=== PATIENT | female | born 1965 | race Caucasian/White ===

== ENCOUNTER → 2017-04-02 | Outpatient (CLI) | payer OTHER ==
--- NOTE | 2017-04-04 10:54 | MM ---
Reason for exam: screening (asymptomatic). Last mammogram was performed 4 years and 6 months ago. History: Patient is postmenopausal. Benign ultrasound-guided core biopsy of the left breast, 2012. Physical Findings: A clinical breast exam by your physician is recommended on an annual basis and results should be correlated with mammographic findings. MG Screening Mammo w CAD Bilateral CC and MLO view(s) were taken. Prior study comparison: September 19, 2012, mammogram. There are scattered fibroglandular densities. Previous mammotome biopsy in the left breast. There is chronic nodularity in the left breast. A nodular asymmetry lateral left breast appear more defined but suspect that it was previously obscured by overlapping tissue as there is no new finding on the MLO view. 6 month follow up recommended. These results were verbally communicated with the patient and result sheet given to the patient on 04/02/17. ASSESSMENT: Probably benign, BI-RAD 3 RECOMMENDATION: Follow-up diagnostic mammogram of the left breast in 6 months.
== END | disposition home or self-care (01) ==
LOC: RADMAMWWP 10:29
PROVIDERS: ATTEND Internal Medicine
DX: Z12.31 Encounter for screening mammogram for malignant neoplasm of breast (principal); E78.5 Hyperlipidemia, unspecified; J45.909 Unspecified asthma, uncomplicated; R56.9 Unspecified convulsions; I10 Essential (primary) hypertension

== ENCOUNTER → 2018-08-09 | Outpatient (CLI) | payer OTHER ==
--- NOTE | 2018-08-09 10:17 | MM ---
Reason for exam: additional evaluation requested from prior study. Last mammogram was performed 1 year and 4 months ago. History: Patient is postmenopausal and history of other cancer. Family history of breast cancer in sister at age 30 and breast cancer in maternal aunt at age 50. Benign ultrasound-guided core biopsy of the left breast, 2012. Physical Findings: Nurse did not find any significant physical abnormalities on exam. MG Diagnostic Mammo w CAD NEIL Bilateral CC and MLO view(s) were taken. Prior study comparison: April 02, 2017, bilateral MG screening mammo w CAD. September 19, 2012, mammogram. There are scattered fibroglandular densities. Stable benign calcifications. Previous mammotome biopsy in the left breast. There is no discrete abnormality. No significant new findings when compared with previous films. These results were verbally communicated with the patient and result sheet given to the patient on 08/09/18. ASSESSMENT: Negative, BI-RAD 1 RECOMMENDATION: Routine screening mammogram of both breasts in 1 year.
== END | disposition home or self-care (01) ==
LOC: RADMAMWWP 09:09
PROVIDERS: ATTEND Internal Medicine
DX: R92.8 Other abnormal and inconclusive findings on diagnostic imaging of breast (principal)
CPT/HCPCS: 77066

== ENCOUNTER 2018-08-17 16:49 | Observation (INO) | payer OTHER ==
[2018-08-17] MEDS ORDERED: IBUPROFEN 800 MG TAB PO PRN (19:06)
[2018-08-17] MEDS ORDERED: ONDANSETRON 4 MG/2 ML VIAL IVP PRN (19:07)
--- NOTE | 2018-08-17 19:25 | XR ---
EXAMINATION TYPE: XR chest 2V DATE OF EXAM: 08/17/2018 COMPARISON: NONE HISTORY: Pneumonia TECHNIQUE: Frontal and lateral views of the chest are obtained. FINDINGS: Heart and mediastinum are normal. Lungs are clear of infiltrate. There are no hilar masses . There is no pleural effusion. Bony thorax is intact. IMPRESSION: No active cardiopulmonary disease. Normal heart.
[2018-08-17] MEDS: ALBUTEROL NEBULIZED 2.5 MG/3 ML INHALATION SCH (19:53)
[2018-08-17] MEDS: ACETAMINOPHEN TAB 325 MG TAB PO PRN (20:20)
[2018-08-17] MEDS: LORazepam 1 MG TAB PO SCH (20:20)
[2018-08-17] MEDS: ATENOLOL 25 MG TAB PO SCH (20:21)
[2018-08-17] MEDS: OSELTAMIVIR 75 MG CAP PO SCH (20:21)
[2018-08-17] MEDS: PHENYTOIN SODIUM EXTENDED 100 MG CAP PO SCH (20:21)
[2018-08-17] MEDS: SODIUM CHLORIDE 0.9% 1,000 ML IV SCH (20:21)
[2018-08-17 20:34] LABS: Basophils # (A) 0.1 k/uL (0-0.2); Basophils % (A) 1 %; Eosinophils # (A) 0.1 k/uL (0-0.7); Eosinophils % (A) 2 %; HCT 39.9 % (34.0-46.0); HGB 13.3 gm/dL (11.4-16.0); Lymphocytes # (A) 0.6 k/uL (1.0-4.8); Lymphocytes % (A) 10 %; MCH 30.7 pg (25.0-35.0); MCHC 33.2 g/dL (31.0-37.0); MCV 92.5 fL (80.0-100.0); Mean Platelet Volume 8.1; Monocytes # (A) 0.5 k/uL (0-1.0); Monocytes % (A) 8 %; Neutrophils # (A) 4.8 k/uL (1.3-7.7); Neutrophils % (A) 77 %; Platelet Count 142 k/uL (150-450); RBC 4.32 m/uL (3.80-5.40); RDW 13.8 % (11.5-15.5); WBC 6.2 k/uL (3.8-10.6)
[2018-08-17 20:47] LABS: ALT 34 U/L (9-52); AST 26 U/L (14-36); Albumin 3.8 g/dL (3.5-5.0); Alkaline Phosphatase 95 U/L (38-126); Anion Gap 3 mmol/L; Blood Urea Nitrogen 11 mg/dL (7-17); Calcium 8.7 mg/dL (8.4-10.2); Carbon Dioxide 25 mmol/L (22-30); Chloride 104 mmol/L (98-107); Glucose 110 mg/dL (74-99); Potassium 4.4 mmol/L (3.5-5.1); Sodium 132 mmol/L (137-145); Total Bilirubin 0.6 mg/dL (0.2-1.3); Total Protein 6.4 g/dL (6.3-8.2)
[2018-08-17] MEDS: MECLIZINE 25 MG TAB PO SCH (22:30)
[2018-08-17] MEDS: AZITHROMYCIN 500 MG in SODIUM CHLORIDE 0.9% 250 ML IVPB SCH (23:55)
[2018-08-18] MEDS ORDERED: BENZOCAINE/MENTHOL LOZENG 1 EACH LOZENGE MUCOUS MEM PRN (01:03)
[2018-08-18] MEDS: ALBUTEROL NEBULIZED 2.5 MG/3 ML INHALATION PRN ×4 (07:37→19:03)
[2018-08-18] MEDS: ALBUTEROL NEBULIZED 2.5 MG/3 ML INHALATION SCH ×4 (07:38→19:04)
[2018-08-18] MEDS: OSELTAMIVIR 75 MG CAP PO SCH ×2 (08:10→21:03)
[2018-08-18] MEDS: PHENYTOIN SODIUM EXTENDED 100 MG CAP PO SCH ×3 (08:10→21:03)
[2018-08-18] MEDS: PANTOPRAZOLE 40 MG TABLET PO SCH (08:10)
[2018-08-18] MEDS: LORazepam 1 MG TAB PO SCH ×3 (08:10→21:02)
[2018-08-18] MEDS: SODIUM CHLORIDE 0.9% 1,000 ML IV SCH ×2 (08:11→21:03)
[2018-08-18] MEDS: MECLIZINE 25 MG TAB PO SCH ×3 (08:11→21:03)
--- NOTE | 2018-08-18 10:16 | P.HPIM ---
History of Present Illness H&P Date: 08/18/18 This is a 53-year-old female patient who was a direct admit from her PCP with positive influenza A. Patient reports that on Tuesday afternoon she started to experiencing headache with fevers. Symptoms became progressively worse and patient presented to her PCP. Patient also complaining of productive cough. Patient was positive for influenza A and was admitted to observation. Patient does have a past medical history of asthma, hypertension, seizure disorder anxiety depression and current every day smoker. Patient declined nicotine patch at this time. Chest x-ray completed showing no acute cardiopulmonary disease. Normal heart. Patient has been started on Tamiflu and azithromycin. Patient did have fever 102.9. Dr. Dean has been consulted for pulmonary services. At this time patient denies chest pain or shortness breath. Patient is complaining of productive cough. Patient denies any urinary burning or frequency. Patient denies nausea vomiting or diarrhea. Review of Systems Please refer to HPI otherwise unremarkable Past Medical History Past Medical History: Asthma, Hypertension, Seizure Disorder Additional Past Medical History / Comment(s): vertigo. LAST SEIZURE "SEVERAL YEARS AGO"; tendonitis in left elbow History of Any Multi-Drug Resistant Organisms: None Reported Past Surgical History: Breast Surgery, Section, Tubal Ligation Additional Past Surgical History / Comment(s): LEFT BREAST BX /NEG. CYST REMOVED RIGHT BUTTOCKS. D & C Past Anesthesia/Blood Transfusion Reactions: Motion Sickness Past Psychological History: Anxiety, Depression Smoking Status: Current every day smoker Past Alcohol Use History: None Reported Additional Past Alcohol Use History / Comment(s): started 1977 1PPD Past Drug Use History: None Reported - Past Family History Mother Family Medical History: Hypertension Father History Unknown: Yes Medications and Allergies Home Medications Medication Instructions Recorded Confirmed Type Atenolol [Tenormin] 25 mg PO HS 04/12/14 08/17/18 History Phenytoin Sodium Extended 100 mg PO TID 04/12/14 08/17/18 History [Dilantin] Albuterol Sulfate [Proair Hfa] 2 puff INHALATION RT-QID 07/29/15 08/17/18 History Ergocalciferol [Vitamin D2 50,000 unit PO MO 08/17/18 08/17/18 History (DRISDOL)] Ibuprofen [Motrin Ib] 800 mg PO Q6H PRN 08/17/18 08/17/18 History LORazepam [Ativan] 1 mg PO TID 08/17/18 08/17/18 History Meclizine [Antivert] 25 mg PO TID 08/17/18 08/17/18 History Omeprazole 40 mg PO DAILY 08/17/18 08/17/18 History Allergies Allergy/AdvReac Type Severity Reaction Status Date / Time ciprofloxacin [From Cipro] Allergy Rash/Hives Verified 08/17/18 18:50 ciprofloxacin HCl Allergy Rash/Hives Verified 08/17/18 18:50 [From Cipro] Penicillins Allergy Rash/Hives Verified 08/17/18 18:50 Sulfa (Sulfonamide Allergy Rash/Hives Verified 08/17/18 18:50 Antibiotics) hydromorphone HCl AdvReac Confusion Verified 08/17/18 18:50 [From Dilaudid] Physical Exam Vitals: Vital Signs Temp Pulse Pulse Resp BP BP Pulse Ox 08/18/18 07:54 98.9 F 75 18 125/75 95 08/18/18 07:45 96 08/18/18 07:37 92 08/18/18 04:00 18 08/18/18 03:52 98.4 F 76 18 101/59 93 L 08/18/18 00:00 18 08/17/18 23:10 102.9 F H 91 18 119/63 92 L 08/17/18 20:05 95 08/17/18 20:00 18 08/17/18 19:56 97 08/17/18 17:46 101.1 F H 95 18 144/72 91 L Intake and Output 08/17/18 08/18/18 08/18/18 22:59 06:59 14:59 Other: Voiding Method Toilet Toilet # Voids 2 Weight 71 kg Head normocephalic Neck supple Lungs diminished bilaterally Heart regular rate and rhythm S1-S2, no rub or gallop Abdomen is soft nontender nondistended positive bowel sounds no hepatosplenomegaly Extremities no edema Neuro alert and orientated to 3 Results CBC & Chem 7: 08/17/18 20:06 08/17/18 20:06 Labs: Abnormal Lab Results - Last 24 Hours (Table) 08/17/18 08/17/18 08/17/18 Range/Units 20:06 20:06 22:18 Plt Count 142 L (150-450) k/uL Lymphocytes # 0.6 L (1.0-4.8) k/uL Sodium 132 L (137-145) mmol/L Glucose 110 H (74-99) mg/dL Influenza Type A RNA Detected H (Not Detectd) Thrombosis Risk Factor Assmnt - Choose All That Apply Any of the Below Risk Factors Present?: Yes Each Factor Represents 1 point: Age 41-60 years Thrombosis Risk Factor Assessment Total Risk Factor Score: 1 Thrombosis Risk Factor Assessment Level: Low Risk Assessment and Plan Assessment: 1. Influenza A. Patient febrile with temp 102.9. Patient started on Tamiflu 2. Acute bronchitis with possible pneumonia. Patient started on azithromycin pulmonary services have been consulted 3. History of asthma 4. History of essential hypertension 5. History of seizure 6. History of anxiety and depression 7. Nicotine dependence. Patient has been educated greater then 3 minutes on smoking cessation. Patient declined nicotine patch at this time DVT prophylaxis Lovenox. GI prophylaxis Protonix Time with Patient: Greater than 30 (Greater than 60% of the total time spent in counseling and coordination of care. [employer] statement)
[2018-08-18 11:25] LABS: Basophils # (A) 0.1 k/uL (0-0.2); Basophils % (A) 1 %; Eosinophils # (A) 0.1 k/uL (0-0.7); Eosinophils % (A) 2 %; HCT 40.2 % (34.0-46.0); Lymphocytes # (A) 0.8 k/uL (1.0-4.8); Lymphocytes % (A) 15 %; MCH 30.5 pg (25.0-35.0); MCHC 32.4 g/dL (31.0-37.0); MCV 94.2 fL (80.0-100.0); Monocytes # (A) 0.3 k/uL (0-1.0); Monocytes % (A) 7 %; Neutrophils # (A) 3.8 k/uL (1.3-7.7); Neutrophils % (A) 74 %; Platelet Count 121 k/uL (150-450); RBC 4.26 m/uL (3.80-5.40); RDW 14.1 % (11.5-15.5); WBC 5.1 k/uL (3.8-10.6)
[2018-08-18 11:41] LABS: ALT 24 U/L (9-52); AST 24 U/L (14-36); Albumin 3.2 g/dL (3.5-5.0); Alkaline Phosphatase 78 U/L (38-126); Anion Gap 6 mmol/L; Blood Urea Nitrogen 9 mg/dL (7-17); Calcium 8.1 mg/dL (8.4-10.2); Carbon Dioxide 25 mmol/L (22-30); Chloride 109 mmol/L (98-107); Glucose 106 mg/dL (74-99); Potassium 4.6 mmol/L (3.5-5.1); Sodium 140 mmol/L (137-145); Total Bilirubin 0.4 mg/dL (0.2-1.3); Total Protein 5.7 g/dL (6.3-8.2)
--- NOTE | 2018-08-18 14:11 | P.CNPUL ---
History of Present Illness Consult date: 08/18/18 Reason for consult: cough History of present illness: 53-year-old female patient, chronic smoker, was then taken ventilator mask and him outpatient basis, comes in with cough and congestion in addition to headache and fever and chills on one bout of emesis. No abdominal pain. Altered mentation. Limited cough without any significant sputum production. No hemoptysis . No pleurisy. The patient was positive for influenza A. She was admitted for observation. She is currently on Tamiflu. Last temperature was 102.9 and currently she is afebrile. She is tolerating Diet. She is calm and comfortable. No hemodynamic instability. No hypotension. No signs of any dehydration. She has not taken her flu shot for this current year. No sick contacts. No travel history. No other complaints otherwise for now. Review of Systems Constitutional: Reports chills, Reports fatigue, Reports fever, Reports sweats, Reports weakness Eyes: denies as per HPI, denies blurred vision, denies bulging eye, denies decreased vision, denies diplopia, denies discharge, denies dry eye, denies irritation, denies itching, denies pain, denies photophobia, denies loss of peripheral vision, denies loss of vision, denies tunnel vision/blind spots Ears: deny: decreased hearing, ear discharge, earache, tinnitus Ears, nose, mouth and throat: Denies headache, Denies sore throat Breasts: absent: as per HPI, change in shape, gynecomastia, masses, nipple discharge, pain, skin changes, swelling Cardiovascular: Reports as per HPI Respiratory: Reports cough Gastrointestinal: Reports as per HPI Menstruation: Reports as per HPI Musculoskeletal: Reports as per HPI Musculoskeletal: absent: ankle pain, ankle stiffness, ankle swelling, as per HPI , elbow pain, elbow stiffness, elbow swelling, foot pain, foot stiffness, foot swelling, hand pain, hand stiffness, hand swelling, hip pain, hip stiffness, hip swelling, knee pain, knee stiffness, knee swelling, shoulder pain, shoulder stiffness, shoulder swelling, wrist pain, wrist stiffness, wrist swelling Integumentary: Reports as per HPI Neurological: Reports as per HPI Psychiatric: Reports as per HPI Hematologic/Lymphatic: Reports as per HPI Allergic/Immunologic: Reports as per HPI Past Medical History Past Medical History: Asthma, Hypertension, Seizure Disorder Additional Past Medical History / Comment(s): vertigo. LAST SEIZURE "SEVERAL YEARS AGO"; tendonitis in left elbow History of Any Multi-Drug Resistant Organisms: None Reported Past Surgical History: Breast Surgery, Section, Tubal Ligation Additional Past Surgical History / Comment(s): LEFT BREAST BX /NEG. CYST REMOVED RIGHT BUTTOCKS. D & C Past Anesthesia/Blood Transfusion Reactions: Motion Sickness Past Psychological History: Anxiety, Depression Smoking Status: Current every day smoker Past Alcohol Use History: None Reported Additional Past Alcohol Use History / Comment(s): started 1977 1PPD Past Drug Use History: None Reported - Past Family History Mother Family Medical History: Hypertension Father History Unknown: Yes Medications and Allergies Home Medications Medication Instructions Recorded Confirmed Type Atenolol [Tenormin] 25 mg PO HS 04/12/14 08/17/18 History Phenytoin Sodium Extended 100 mg PO TID 04/12/14 08/17/18 History [Dilantin] Albuterol Sulfate [Proair Hfa] 2 puff INHALATION RT-QID 07/29/15 08/17/18 History Ergocalciferol [Vitamin D2 50,000 unit PO MO 08/17/18 08/17/18 History (DRISDOL)] Ibuprofen [Motrin Ib] 800 mg PO Q6H PRN 08/17/18 08/17/18 History LORazepam [Ativan] 1 mg PO TID 08/17/18 08/17/18 History Meclizine [Antivert] 25 mg PO TID 08/17/18 08/17/18 History Omeprazole 40 mg PO DAILY 08/17/18 08/17/18 History Allergies Allergy/AdvReac Type Severity Reaction Status Date / Time ciprofloxacin [From Cipro] Allergy Rash/Hives Verified 08/17/18 18:50 ciprofloxacin HCl Allergy Rash/Hives Verified 08/17/18 18:50 [From Cipro] Penicillins Allergy Rash/Hives Verified 08/17/18 18:50 Sulfa (Sulfonamide Allergy Rash/Hives Verified 08/17/18 18:50 Antibiotics) hydromorphone HCl AdvReac Confusion Verified 08/17/18 18:50 [From Dilaudid] Physical Exam Vitals: Vital Signs Temp Pulse Pulse Resp BP BP Pulse Ox 08/18/18 12:00 100 F H 91 18 116/65 94 L 08/18/18 11:21 96 08/18/18 11:12 92 08/18/18 07:54 98.9 F 75 18 125/75 95 08/18/18 07:45 96 08/18/18 07:37 92 08/18/18 04:00 18 08/18/18 03:52 98.4 F 76 18 101/59 93 L 08/18/18 00:00 18 08/17/18 23:10 102.9 F H 91 18 119/63 92 L 08/17/18 20:05 95 08/17/18 20:00 18 08/17/18 19:56 97 08/17/18 17:46 101.1 F H 95 18 144/72 91 L Intake and Output 08/17/18 08/18/18 08/18/18 22:59 06:59 14:59 Other: Voiding Method Toilet Toilet Toilet # Voids 2 Weight 71 kg The patient appeared well nourished and normally developed. Vital signs as documented. Head exam is unremarkable. No scleral icterus or corneal arcus noted. Neck is without jugular venous distension, thyromegaly, or carotid bruits. Carotid upstrokes are brisk bilaterally. Lungs are clear to auscultation and percussion. Cardiac exam reveals the PMI to be normally sized and situated. Rhythm is regular. First and second heart sounds normal. No murmurs, rubs or gallops. Abdominal exam reveals normal bowel sounds, no masses , no organomegaly and no aortic enlargement. Extremities are nonedematous and both femoral and pedal pulses are normal.Examination of the skin revealed no evidence of significant rashes, suspicious appearing nevi or other concerning lesions. Neurologically awake and intact and alert. Examination of the skin revealed no evidence of significant rashes, suspicious appearing nevi or other concerning lesions. Results - Laboratory Findings CBC and BMP: 08/18/18 11:05 08/18/18 11:05 Abnormal lab findings: Abnormal Labs 08/17/18 08/17/18 08/17/18 20:06 20:06 22:18 Plt Count 142 L Lymphocytes # 0.6 L Sodium 132 L Chloride Glucose 110 H Calcium Total Protein Albumin Influenza Type A RNA Detected H 08/18/18 08/18/18 11:05 11:05 Plt Count 121 L Lymphocytes # 0.8 L Sodium Chloride 109 H Glucose 106 H Calcium 8.1 L Total Protein 5.7 L Albumin 3.2 L Influenza Type A RNA - Diagnostic Findings Chest x-ray: image reviewed Assessment and Plan Plan: Assessment 1 acute influenza syndrome, respiratory tract infection with secondary systemic symptoms including some headache nausea and emesis. No signs of dehydration. The patient has no major respiratory distress or hypoxemia at this point pulse ox 94% on room air 2 acute fever secondary to above 3 chronic smoker 4 history of chronic bronchial asthma 5 hypertension 6 seizure disorder 7 chronic anxiety/depression Plan Complete a course of Tamiflu for the next 5 days. Symptomatic treatment. IV fluids. Monitor fever pattern. Headache has subsided. No significant nausea. No signs of any respiratory distress. 23 hour observation. Possible discharge in a.m.
[2018-08-18] MEDS: ACETAMINOPHEN TAB 325 MG TAB PO PRN (15:03)
[2018-08-18] MEDS: AZITHROMYCIN 500 MG in SODIUM CHLORIDE 0.9% 250 ML IVPB SCH (21:03)
[2018-08-18] MEDS: ATENOLOL 25 MG TAB PO SCH (21:03)
[2018-08-19 05:59] LABS: Basophils # (A) 0.1 k/uL (0-0.2); Basophils % (A) 1 %; Eosinophils # (A) 0.3 k/uL (0-0.7); Eosinophils % (A) 8 %; HCT 38.3 % (34.0-46.0); Lymphocytes # (A) 0.8 k/uL (1.0-4.8); Lymphocytes % (A) 20 %; MCH 29.9 pg (25.0-35.0); MCHC 31.4 g/dL (31.0-37.0); MCV 95.1 fL (80.0-100.0); Mean Platelet Volume 9.4; Monocytes # (A) 0.2 k/uL (0-1.0); Monocytes % (A) 5 %; Neutrophils # (A) 2.6 k/uL (1.3-7.7); Neutrophils % (A) 63 %; Platelet Count 118 k/uL (150-450); RBC 4.03 m/uL (3.80-5.40); RDW 14.3 % (11.5-15.5); WBC 4.2 k/uL (3.8-10.6)
[2018-08-19 06:12] LABS: ALT 31 U/L (9-52); AST 25 U/L (14-36); Albumin 3.1 g/dL (3.5-5.0); Alkaline Phosphatase 74 U/L (38-126); Anion Gap 3 mmol/L; Blood Urea Nitrogen 8 mg/dL (7-17); Calcium 8.1 mg/dL (8.4-10.2); Carbon Dioxide 27 mmol/L (22-30); Chloride 110 mmol/L (98-107); Glucose 110 mg/dL (74-99); Potassium 4.2 mmol/L (3.5-5.1); Sodium 140 mmol/L (137-145); Total Bilirubin 0.3 mg/dL (0.2-1.3); Total Protein 5.5 g/dL (6.3-8.2)
[2018-08-19 07:30] VITALS: BP 121/70; RESP 18; TEMP 98.4
[2018-08-19] MEDS: ALBUTEROL NEBULIZED 2.5 MG/3 ML INHALATION PRN (08:02)
[2018-08-19] MEDS: ALBUTEROL NEBULIZED 2.5 MG/3 ML INHALATION SCH ×2 (08:02→12:10)
[2018-08-19 08:13] VITALS: PULSE 78
[2018-08-19] MEDS ORDERED: ENOXAPARIN 40 MG/0.4 ML SYRINGE SQ SCH (09:00)
[2018-08-19] MEDS: MECLIZINE 25 MG TAB PO SCH (09:16)
[2018-08-19] MEDS: LORazepam 1 MG TAB PO SCH (09:16)
[2018-08-19] MEDS: PANTOPRAZOLE 40 MG TABLET PO SCH (09:16)
[2018-08-19] MEDS: PHENYTOIN SODIUM EXTENDED 100 MG CAP PO SCH (09:16)
[2018-08-19] MEDS: OSELTAMIVIR 75 MG CAP PO SCH (09:17)
[2018-08-19] MEDS: ACETAMINOPHEN TAB 325 MG TAB PO PRN (09:21)
--- NOTE | 2018-08-19 12:06 | P.DS ---
Providers Date of admission: 08/17/18 17:40 Expected date of discharge: 08/19/18 Attending physician: Paresh Li Consults: 08/18/18 10:08 Consult Physician Routine Consulting Provider: Kenisha Escalante Consult Reason/Comments: flu a, pneumonia` Do you want consulting provider notified?: Yes Primary care physician: Paresh Guillermo [facility] Course: Diagnosis on discharge: 1. Influenza A. Patient febrile with temp 102.9. Patient started on Tamiflu 2. Acute bronchitis without pneumonia chest x-ray clear. Patient started on azithromycin pulmonary services have been consulted 3. History of asthma 4. History of essential hypertension 5. History of seizure 6. History of anxiety and depression 7. Nicotine dependence. Patient has been educated greater then 3 minutes on smoking cessation. Patient declined nicotine patch at this time Hospital course: This is a 53-year-old female patient who was a direct admit from her PCP with positive influenza A. Patient reports that on Tuesday afternoon she started to experiencing headache with fevers. Symptoms became progressively worse and patient presented to her PCP. Patient also complaining of productive cough. Patient was positive for influenza A and was admitted to observation. Patient does have a past medical history of asthma, hypertension, seizure disorder anxiety depression and current every day smoker. Patient declined nicotine patch at this time. Chest x-ray completed showing no acute cardiopulmonary disease. Normal heart. Patient has been started on Tamiflu and azithromycin. Patient did have fever 102.9. Dr. Dean has been consulted for pulmonary services. At this time patient denies chest pain or shortness breath. Patient is complaining of productive cough. Patient denies any urinary burning or frequency. Patient denies nausea vomiting or diarrhea. Patient admitted to observation unit she was diagnosed with influenza A and with acute purulent bronchitis she received oral Tamiflu she also received IV Zithromax, home medication resumed, patient improved gradually fever and headache subsided she was evaluated by primary health organisation manager during this admission. Patient improved significantly and was discharged home on 08/19/2018 she will be followed in our office within 1 week. Plan - Discharge Summary Discharge Rx Participant: No New Discharge Prescriptions: New Acetaminophen Tab [Tylenol] 650 mg PO Q6HR PRN tab PRN Reason: Fever And/ Or Pain Oseltamivir [Tamiflu] 75 mg PO Q12HR cap Continue Atenolol [Tenormin] 25 mg PO HS Phenytoin Sodium Extended [Dilantin] 100 mg PO TID Albuterol Sulfate [Proair Hfa] 2 puff INHALATION RT-QID Omeprazole 40 mg PO DAILY LORazepam [Ativan] 1 mg PO TID Meclizine [Antivert] 25 mg PO TID Ibuprofen [Motrin Ib] 800 mg PO Q6H PRN PRN Reason: PAIN/FEVER Ergocalciferol [Vitamin D2 (DRISDOL)] 50,000 unit PO MO Discharge Medication List Atenolol [Tenormin] 25 mg PO HS 04/12/14 [History] Phenytoin Sodium Extended [Dilantin] 100 mg PO TID 04/12/14 [History] Albuterol Sulfate [Proair Hfa] 2 puff INHALATION RT-QID 07/29/15 [History] Ergocalciferol [Vitamin D2 (DRISDOL)] 50,000 unit PO MO 08/17/18 [History] Ibuprofen [Motrin Ib] 800 mg PO Q6H PRN 08/17/18 [History] LORazepam [Ativan] 1 mg PO TID 08/17/18 [History] Meclizine [Antivert] 25 mg PO TID 08/17/18 [History] Omeprazole 40 mg PO DAILY 08/17/18 [History] Acetaminophen Tab [Tylenol] 650 mg PO Q6HR PRN tab 08/19/18 [Rx] Oseltamivir [Tamiflu] 75 mg PO Q12HR cap 08/19/18 [Rx]
[2018-08-21] MEDS ORDERED: ERGOCALCIFEROL 50,000 UNIT CAP PO SCH (12:00)
== END 2018-08-19 12:41 | disposition home or self-care (01) ==
LOC: 1SOBS 17:40
PROVIDERS: ADMIT Internal Medicine; ATTEND Internal Medicine
DX: J10.1 Influenza due to other identified influenza virus with other respiratory manifestations (principal); J20.9 Acute bronchitis, unspecified; J45.909 Unspecified asthma, uncomplicated; F32.9 Major depressive disorder, single episode, unspecified; G40.909 Epilepsy, unspecified, not intractable, without status epilepticus; F41.9 Anxiety disorder, unspecified; F17.210 Nicotine dependence, cigarettes, uncomplicated; I10 Essential (primary) hypertension; Z71.6 Tobacco abuse counseling; Z88.1 Allergy status to other antibiotic agents; Z88.5 Allergy status to narcotic agent; Z88.0 Allergy status to penicillin; Z88.2 Allergy status to sulfonamides; Z98.51 Tubal ligation status; Z79.899 Other long term (current) drug therapy; Z82.49 Family history of ischemic heart disease and other diseases of the circulatory system
CPT/HCPCS: 96361; 96365; 96366; 96372; 94640 ×3; 80053 ×3; 85025 ×3; 87502; 71046; G0378 ×3; G0379; J0456 ×2; J1650

== ENCOUNTER 2021-04-04 15:34 | Emergency (ER) | payer OTHER ==
[2021-04-04] MEDS ORDERED: guaiFENesin-DM 600/30MG 1 EACH TAB.ER.12H PO STA (17:21)
--- NOTE | 2021-04-04 17:27 | ED ---
General Adult HPI - General Source: patient Mode of arrival: ambulatory Limitations: no limitations <Silvia Gates - Last Filed: 04/04/21 22:26> <Emily Guzman - Last Filed: 04/06/21 00:59> - General Chief complaint: Upper Respiratory Infection Stated complaint: Upper Resp Time Seen by Provider: 04/04/21 16:57 - History of Present Illness Initial comments: 55 year-old female patient presents to the emergency department for evaluation of cough. States it woke her from sleep last night. States she has had episodes of coughing throughout the day and now she has a sore throat. She is concerned she has strep. She denies any shortness of breath or chest pain. States her cough is productive. Denies hemoptysis. Denies any fever or chills. Denies nausea or vomiting. States she is vaccinated for COVID and does not need to be tested. She denies taking any medication for her symptoms. She is a smoker. (Silvia Gates) - Related Data Home Medications Medication Instructions Recorded Confirmed Phenytoin Sodium Extended 100 mg PO TID 04/12/14 08/17/18 [Dilantin] atenoloL [Tenormin] 25 mg PO HS 04/12/14 08/17/18 Albuterol Sulfate [Proair Hfa] 2 puff INHALATION RT-QID 07/29/15 08/17/18 Ergocalciferol [Vitamin D2 50,000 unit PO MO 08/17/18 08/17/18 (DRISDOL)] Ibuprofen [Motrin Ib] 800 mg PO Q6H PRN 08/17/18 08/17/18 LORazepam [Ativan] 1 mg PO TID 08/17/18 08/17/18 Meclizine [Antivert] 25 mg PO TID 08/17/18 08/17/18 Omeprazole 40 mg PO DAILY 08/17/18 08/17/18 Previous Rx's Medication Instructions Recorded Acetaminophen Tab [Tylenol] 650 mg PO Q6HR PRN tab 08/19/18 Oseltamivir [Tamiflu] 75 mg PO Q12HR cap 08/19/18 guaiFENesin-DM 600/30MG [Mucinex 2 each PO Q12HR PRN #20 tab 04/04/21 Dm] guaiFENesin-DM 600/30MG [Mucinex 2 each PO Q12HR PRN #20 tab 04/04/21 Dm] Allergies Allergy/AdvReac Type Severity Reaction Status Date / Time ciprofloxacin [From Cipro] Allergy Rash/Hives Verified 04/04/21 16:54 ciprofloxacin HCl Allergy Rash/Hives Verified 04/04/21 16:54 [From Cipro] Penicillins Allergy Rash/Hives Verified 04/04/21 16:54 Sulfa (Sulfonamide Allergy Rash/Hives Verified 04/04/21 16:54 Antibiotics) hydromorphone HCl AdvReac Confusion Verified 04/04/21 16:54 [From Dilaudid] Review of Systems ROS Other: All systems not noted in ROS Statement are negative. <Silvia Gates - Last Filed: 04/04/21 22:26> ROS Other: All systems not noted in ROS Statement are negative. <Emily Guzman - Last Filed: 04/06/21 00:59> ROS Statement: Those systems with pertinent positive or pertinent negative responses have been documented in the HPI. Past Medical History Past Medical History: Asthma, Hypertension, Seizure Disorder Additional Past Medical History / Comment(s): vertigo. LAST SEIZURE "SEVERAL YEARS AGO"; tendonitis in left elbow History of Any Multi-Drug Resistant Organisms: None Reported Past Surgical History: Breast Surgery, Section, Tubal Ligation Additional Past Surgical History / Comment(s): LEFT BREAST BX /NEG. CYST REMOVED RIGHT BUTTOCKS. D & C Past Anesthesia/Blood Transfusion Reactions: Motion Sickness Past Psychological History: Anxiety, Depression Smoking Status: Current every day smoker Past Alcohol Use History: None Reported Past Drug Use History: None Reported - Past Family History Mother Family Medical History: Hypertension Father History Unknown: Yes <Silvia Gates - Last Filed: 04/04/21 22:26> General Exam Limitations: no limitations General appearance: alert, in no apparent distress, other (This is a well- developed, well-nourished adult female patient in no acute distress. Vital signs upon presentation are temperature 98.4F, pulse 77, respirations 18, blood pressure 180/98, pulse ox 96% on room air.) ENT exam: Present: mucous membranes moist. Absent: normal oropharynx (pharyngeal erythema, tonsillar hypertropy. No exudate. Tonsils are symmetric. Uvula is midline.) Respiratory exam: Present: normal lung sounds bilaterally. Absent: respiratory distress, wheezes, rales, rhonchi, stridor Cardiovascular Exam: Present: regular rate, normal rhythm, normal heart sounds. Absent: systolic murmur, diastolic murmur, rubs, gallop, clicks Neurological exam: Present: alert, oriented X3, CN II-XII intact Psychiatric exam: Present: normal affect, normal mood Skin exam: Present: warm, dry, intact, normal color. Absent: rash <Silvia Gates - Last Filed: 04/04/21 22:26> Course Vital Signs 04/04/21 04/04/21 16:55 18:40 Temperature 98.4 F 98.2 F Pulse Rate 77 76 Respiratory 18 20 Rate Blood Pressure 180/98 178/84 O2 Sat by Pulse 96 97 Oximetry Medical Decision Making - Radiology Data Radiology results: report reviewed, image reviewed <Silvia Gates - Last Filed: 04/04/21 22:26> <Emily Guzman - Last Filed: 04/06/21 00:59> - Medical Decision Making 55-year-old female patient with long history of smoking cigarettes presents the emergency department today for evaluation of persistent cough and sore throat. Physical examination did feel clear equal lung sounds. Strep screen was negat brianna. Chest x-ray was negative. She'll be given a prescription for Mucinex DM. She is instructed to follow-up with her primary care physician for recheck in 1- 2 days. Return parameters were discussed in detail. She verbalizes understanding and agrees with this plan. My attending is Dr. Guzman. (Silvia Gates) I was available for consultation in the emergency department. The history and physical exam were done by the midlevel provider. I was consulted for this patients care. I reviewed the case with the midlevel provider and based on their presentation of the patient, I agree with the assessment, medical decision making and plan of care as documented. Chart was dictated using [employer] dictation software. Attempts were made to correct any dictation errors however some typographical errors may persist. (Emily Guzman) - Lab Data Lab Results 04/04/21 Range/Units 17:28 Group A Strep Rapid Negative (Negative) - Radiology Data 2 views of the chest are obtained. Report was reviewed in its entirety. Impression by Dr. Liu shows unremarkable chest. No change. (Silvia Gates) Disposition Is patient prescribed a controlled substance at d/c from ED?: No Time of Disposition: 18:21 <Silvia Gates - Last Filed: 04/04/21 22:26> <ThomasEmily Kartik - Last Filed: 04/06/21 00:59> Clinical Impression: Viral upper respiratory infection Disposition: HOME SELF-CARE Condition: Good Instructions (If sedation given, give patient instructions): Upper Respiratory Infection (ED) Additional Instructions: Take Tylenol and Motrin for pain control. Continue Mucinex for cough. Follow- up with her primary care physician for recheck in 1-2 days. Return for any new, worsening, or concerning symptoms. Prescriptions: guaiFENesin-DM 600/30MG [Mucinex Dm] 2 each PO Q12HR PRN #20 tab PRN Reason: Cough guaiFENesin-DM 600/30MG [Mucinex Dm] 2 each PO Q12HR PRN #20 tab PRN Reason: Cough Referrals: Paresh Li MD [Primary Care Provider] - 1-2 days
--- NOTE | 2021-04-04 18:09 | XR ---
EXAMINATION TYPE: XR chest 2V DATE OF EXAM: 04/04/2021 COMPARISON: 08/17/2018 HISTORY: Possible pneumonia. Chest pain TECHNIQUE: 2 views FINDINGS: Heart and mediastinum are normal. Lungs are clear. Diaphragm is normal. Bony thorax appears normal. IMPRESSION: Multiple chest. No change.
[2021-04-04 18:41] VITALS: BP 178/84; PULSE 76; RESP 20; TEMP 98.2
== END 2021-04-04 18:41 | disposition home or self-care (01) ==
LOC: EC 15:34
DX: J06.9 Acute upper respiratory infection, unspecified (principal); F17.200 Nicotine dependence, unspecified, uncomplicated; J45.909 Unspecified asthma, uncomplicated; I10 Essential (primary) hypertension; G40.909 Epilepsy, unspecified, not intractable, without status epilepticus; Z79.899 Other long term (current) drug therapy; Z88.0 Allergy status to penicillin; Z88.1 Allergy status to other antibiotic agents; Z88.2 Allergy status to sulfonamides; Z88.5 Allergy status to narcotic agent
CPT/HCPCS: 71046; 87081; 87430; 99283

== ENCOUNTER 2022-03-06 12:13 | Emergency (ER) | payer OTHER ==
[2022-03-06 12:17] VITALS: RESP 16
--- NOTE | 2022-03-06 14:16 | XR ---
EXAMINATION TYPE: XR foot complete RT DATE OF EXAM: 03/06/2022 COMPARISON: NONE HISTORY: Foot pain TECHNIQUE: 3 views FINDINGS: Metatarsals are intact. The toes appear intact. No evidence of fracture nor dislocation. Jael int spaces are normal. IMPRESSION: Negative right foot exam. No fracture
[2022-03-06] MEDS ORDERED: ACET/COD 300 MG/30 MG STARTER PACK 6 TAB BTL PO STA (14:44)
--- NOTE | 2022-03-06 14:44 | ED ---
General Adult HPI - General Chief complaint: Extremity Problem,Nontraumatic Stated complaint: right foot pain Time Seen by Provider: 03/06/22 13:34 Source: patient, RN notes reviewed Mode of arrival: ambulatory Limitations: no limitations - History of Present Illness Initial comments: 56-year-old female presents emergency Department chief complaint right foot pain. Patient states his been increasing over the last week or 2. Patient states that she has pain worsening when she in place from. Time states it feels very tight and radiating pain. She feels it more dorsal lateral portion of her foot no paresthesias no trauma no prior surgeries. - Related Data Home Medications Medication Instructions Recorded Confirmed Phenytoin Sodium Extended 100 mg PO TID 04/12/14 08/17/18 [Dilantin] atenoloL [Tenormin] 25 mg PO HS 04/12/14 08/17/18 Albuterol Sulfate [Proair Hfa] 2 puff INHALATION RT-QID 07/29/15 08/17/18 Ergocalciferol [Vitamin D2 50,000 unit PO MO 08/17/18 08/17/18 (DRISDOL)] Ibuprofen [Motrin Ib] 800 mg PO Q6H PRN 08/17/18 08/17/18 LORazepam [Ativan] 1 mg PO TID 08/17/18 08/17/18 Meclizine [Antivert] 25 mg PO TID 08/17/18 08/17/18 Omeprazole 40 mg PO DAILY 08/17/18 08/17/18 Previous Rx's Medication Instructions Recorded Acetaminophen Tab [Tylenol] 650 mg PO Q6HR PRN tab 08/19/18 Oseltamivir [Tamiflu] 75 mg PO Q12HR cap 08/19/18 guaiFENesin-DM 600/30MG [Mucinex 2 each PO Q12HR PRN #20 tab 04/04/21 Dm] guaiFENesin-DM 600/30MG [Mucinex 2 each PO Q12HR PRN #20 tab 04/04/21 Dm] Ibuprofen [Motrin] 600 mg PO Q8HR PRN #20 tab 03/06/22 predniSONE 50 mg PO DAILY #5 tab 03/06/22 Allergies Allergy/AdvReac Type Severity Reaction Status Date / Time ciprofloxacin [From Cipro] Allergy Rash/Hives Verified 03/06/22 12:15 ciprofloxacin HCl Allergy Rash/Hives Verified 03/06/22 12:15 [From Cipro] Penicillins Allergy Rash/Hives Verified 03/06/22 12:15 Sulfa (Sulfonamide Allergy Rash/Hives Verified 03/06/22 12:15 Antibiotics) hydromorphone HCl AdvReac Confusion Verified 03/06/22 12:15 [From Dilaudid] Review of Systems ROS Statement: Those systems with pertinent positive or pertinent negative responses have been documented in the HPI. ROS Other: All systems not noted in ROS Statement are negative. Past Medical History Past Medical History: Asthma, Hypertension, Seizure Disorder Additional Past Medical History / Comment(s): vertigo. LAST SEIZURE "SEVERAL YEARS AGO"; tendonitis in left elbow History of Any Multi-Drug Resistant Organisms: None Reported Past Surgical History: Breast Surgery, Section, Tubal Ligation Additional Past Surgical History / Comment(s): LEFT BREAST BX /NEG. CYST REMOVED RIGHT BUTTOCKS. D & C Past Anesthesia/Blood Transfusion Reactions: Motion Sickness Past Psychological History: Anxiety, Depression Smoking Status: Current every day smoker Past Alcohol Use History: None Reported Past Drug Use History: None Reported - Past Family History Mother Family Medical History: Hypertension Father History Unknown: Yes General Exam Limitations: no limitations General appearance: alert, in no apparent distress Head exam: Present: atraumatic, normocephalic, normal inspection Respiratory exam: Present: normal lung sounds bilaterally. Absent: respiratory distress, wheezes, rales, rhonchi, stridor Cardiovascular Exam: Present: regular rate, normal rhythm, normal heart sounds. Absent: systolic murmur, diastolic murmur, rubs, gallop, clicks Extremities exam: Present: other (Right foot there is no iris deformity, pulses equal bilaterally, there is tenderness more on the lateral portion a of the left foot) Course Vital Signs 03/06/22 12:15 Temperature 98.2 F Pulse Rate 72 Respiratory 16 Rate Blood Pressure 157/77 O2 Sat by Pulse 93 L Oximetry Medical Decision Making - Medical Decision Making X-ray shows no acute osseous abnormality. Patient has plantar fasciitis, tenderness of her right foot. Cerner treatment including ice and elevation and rest will be started patient will follow primary, podiatry as needed. Disposition Clinical Impression: Tendinitis of right foot Disposition: HOME SELF-CARE Condition: Stable Instructions (If sedation given, give patient instructions): Tendinitis (ED), Plantar Fasciitis (ED) Additional Instructions: Please return to the Emergency Department if symptoms worsen or any other concerns. Prescriptions: Ibuprofen [Motrin] 600 mg PO Q8HR PRN #20 tab PRN Reason: Pain predniSONE 50 mg PO DAILY #5 tab Is patient prescribed a controlled substance at d/c from ED?: No Referrals: Paresh Li MD [Primary Care Provider] - 1-2 days Time of Disposition: 14:44
[2022-03-06 15:08] VITALS: BP 143/78; PULSE 63; TEMP 97.8
== END 2022-03-06 15:00 | disposition home or self-care (01) ==
LOC: EC 12:13
DX: M65.871 Other synovitis and tenosynovitis, right ankle and foot (principal); I10 Essential (primary) hypertension; J45.909 Unspecified asthma, uncomplicated; F17.200 Nicotine dependence, unspecified, uncomplicated; Z88.2 Allergy status to sulfonamides; Z88.1 Allergy status to other antibiotic agents; Z88.0 Allergy status to penicillin; Z88.8 Allergy status to other drugs, medicaments and biological substances
CPT/HCPCS: 99283

== ENCOUNTER 2023-01-11 07:21 | Emergency (ER) | payer OTHER ==
--- NOTE | 2023-01-11 07:53 | ED ---
Head Injury HPI - General Chief complaint: Head Injury Stated complaint: Fall, head injury Time Seen by Provider: 01/11/23 07:23 Source: patient, RN notes reviewed Mode of arrival: ambulatory Limitations: no limitations - History of Present Illness Initial comments: This is a 57-year-old female who presents to the emergency department for a fall. States that yesterday she tripped and fell backwards, hitting her head on a door. She has since had a headache to the back and top of the head. States that when she was getting ready around the house this morning, she was feeling lightheaded and "woozy", prompting her to come to the emergency department for evaluation of the head injury. She has some generalized soreness, but otherwise denies any injuries. She did not have any loss of consciousness when she fell and she is not taking any blood thinners. Denies any fevers, chills, sore throat, cough, dyspnea, chest pain, palpitations, abdominal pain, nausea, vomiting, or diarrhea. MD Complaint: head injury, fall Onset/Timin -: days(s) - Related Data Home Medications Medication Instructions Recorded Confirmed Phenytoin Sodium Extended 100 mg PO TID 04/12/14 08/17/18 [Dilantin] atenoloL [Tenormin] 25 mg PO HS 04/12/14 08/17/18 Albuterol Sulfate [Proair Hfa] 2 puff INHALATION RT-QID 07/29/15 08/17/18 Ergocalciferol [Vitamin D2 50,000 unit PO MO 08/17/18 08/17/18 (DRISDOL)] Ibuprofen [Motrin Ib] 800 mg PO Q6H PRN 08/17/18 08/17/18 LORazepam [Ativan] 1 mg PO TID 08/17/18 08/17/18 Meclizine [Antivert] 25 mg PO TID 08/17/18 08/17/18 Omeprazole 40 mg PO DAILY 08/17/18 08/17/18 Previous Rx's Medication Instructions Recorded Acetaminophen Tab [Tylenol] 650 mg PO Q6HR PRN tab 08/19/18 Oseltamivir [Tamiflu] 75 mg PO Q12HR cap 08/19/18 guaiFENesin-DM 600/30MG [Mucinex 2 each PO Q12HR PRN #20 tab 04/04/21 Dm] guaiFENesin-DM 600/30MG [Mucinex 2 each PO Q12HR PRN #20 tab 04/04/21 Dm] Ibuprofen [Motrin] 600 mg PO Q8HR PRN #20 tab 03/06/22 predniSONE 50 mg PO DAILY #5 tab 03/06/22 Allergies/Adverse reactions: Allergies Allergy/AdvReac Type Severity Reaction Status Date / Time ciprofloxacin [From Cipro] Allergy Rash/Hives Verified 01/11/23 07:28 ciprofloxacin HCl Allergy Rash/Hives Verified 01/11/23 07:28 [From Cipro] Penicillins Allergy Rash/Hives Verified 01/11/23 07:28 Sulfa (Sulfonamide Allergy Rash/Hives Verified 01/11/23 07:28 Antibiotics) hydromorphone HCl AdvReac Confusion Verified 01/11/23 07:28 [From Dilaudid] Review of Systems ROS Statement: Those systems with pertinent positive or pertinent negative responses have been documented in the HPI. ROS Other: All systems not noted in ROS Statement are negative. Past Medical History Past Medical History: Asthma, Hypertension, Seizure Disorder Additional Past Medical History / Comment(s): vertigo. LAST SEIZURE "SEVERAL YEARS AGO"; tendonitis in left elbow History of Any Multi-Drug Resistant Organisms: None Reported Past Surgical History: Breast Surgery, Section, Tubal Ligation Additional Past Surgical History / Comment(s): LEFT BREAST BX /NEG. CYST REMOVED RIGHT BUTTOCKS. D & C Past Anesthesia/Blood Transfusion Reactions: Motion Sickness Past Psychological History: Anxiety, Depression Smoking Status: Current every day smoker Past Alcohol Use History: None Reported Past Drug Use History: None Reported - Past Family History Mother Family Medical History: Hypertension Father History Unknown: Yes General Exam Limitations: no limitations General appearance: alert, in no apparent distress Head exam: Present: atraumatic, normocephalic, normal inspection Eye exam: Present: normal appearance, PERRL, EOMI. Absent: scleral icterus, conjunctival injection, periorbital swelling Respiratory exam: Present: normal lung sounds bilaterally. Absent: respiratory distress, wheezes, rales, rhonchi, stridor Cardiovascular Exam: Present: regular rate, normal rhythm, normal heart sounds. Absent: systolic murmur, diastolic murmur, rubs, gallop, clicks Neurological exam: Present: alert, oriented X3, CN II-XII intact Psychiatric exam: Present: normal affect, normal mood Skin exam: Present: warm, dry, intact, normal color. Absent: rash Course Vital Signs 01/11/23 01/11/23 07:25 08:38 Temperature 98 F 97.8 F Pulse Rate 72 62 Respiratory 18 16 Rate Blood Pressure 172/83 147/82 O2 Sat by Pulse 93 L 94 L Oximetry Medical Decision Making - Medical Decision Making This is a 57-year-old female who presents to the emergency department for a head injury. Was pt. sent in by a medical professional or institution? @ -No Did you speak to anyone other than the patient for history? @ -No Did you review nursing and triage notes? @ -Yes, and I agree, it is accurate with regards to the patient's symptoms. Were old charts reviewed? @ -No Differential Diagnosis? @ -Differential Diagnosis Head Injury: Contusion, hematoma, intracranial hemorrhage, skull fracture, whiplash, concussion, this is not meant to be an all-inclusive list. EKG interpreted by me (3pts min.)? @ -Not obtained X-rays interpreted by me (1pt min.)? @ -Not obtained CT interpreted by me (1pt min.)? @ -Computed tomography scan of the brain and c-spine obtained. My interpretation identifies no evidence of an acute intracranial hemorrhage, skull fracture, or cervical spine fracture. U/S interpreted by me (1pt. min.)? @ -Not obtained What testing was considered but not performed? (CT, X-rays, U/S, labs)? Why? @ -None What meds were considered but not given? Why? @ -None Did you discuss the management of the patient with other professionals? @ -No Did you reconcile home meds? @ -No Was smoking cessation discussed for >3mins.? @ -No Was critical care preformed (if so, how long)? @ -No Were there social determinants of health that impacted care today? How? (Homelessness, low income, unemployed, alcoholism, drug addiction, transportation, low edu. Level, literacy, decrease access to med. care, longterm, rehab)? @ -No Was there de-escalation of care discussed even if they declined? (Discuss DNR or withdrawal of care, Hospice)? @ -No What co-morbidities impacted this encounter? (DM, HTN, Smoking, COPD, CAD, Cancer, CVA, Hep., AIDS, mental health diagnosis, sleep apnea, morbid obesity)? @ -None Was patient admitted / discharged? @ -Discharged. Computed tomography scan of the brain and c-spine obtained revealing no acute findings. Advised the patient that this does not rule out the possibility of a concussion, as that is a clinical diagnosis based on her symptoms. Risks for second impact syndrome reviewed as well. Advised she alternate with ibuprofen and Tylenol as needed for any additional headaches. She will otherwise follow-up with her primary care provider. Undiagnosed new problem with uncertain prognosis? @ -None Drug Therapy requiring intensive monitoring for toxicity (Heparin, Nitro, Insulin, Cardizem)? @ -None Were any procedures done? @ -None Diagnosis/symptom? @ -Closed head injury Acute, or Chronic, or Acute on Chronic? @ -Acute Uncomplicated (without systemic symptoms) or Complicated (systemic symptoms)? @ -Uncomplicated Side effects of treatment? @ -None Exacerbation, Progression, or Severe Exacerbation @ -Not applicable Poses a threat to life or bodily function? @ -No Return precautions reviewed in depth, the patient is instructed to return to the emergency department with any new, worsening, or concerning symptoms. Patient verbalized understanding. This case was discussed in detail with the attending ED physician, Dr. Ryan. Presentation, findings, and treatment plan discussed in detail as well. - Radiology Data Radiology results: report reviewed, image reviewed Disposition Clinical Impression: Closed head injury Disposition: HOME SELF-CARE Instructions (If sedation given, give patient instructions): Head Injury (ED) Additional Instructions: Return to the emergency department with any new, worsening, or concerning symptoms. Alternate with ibuprofen and Tylenol as needed for pain relief. Follow up with your primary care provider in 1-2 days. Is patient prescribed a controlled substance at d/c from ED?: No Referrals: Paresh Li MD [Primary Care Provider] - 1-2 days
--- NOTE | 2023-01-11 08:12 | CT ---
EXAMINATION TYPE: CT brain vicky murphy con DATE OF EXAM: 01/11/2023 COMPARISON: 06/29/2011 HISTORY: fall @ 1630 7.17.23 headache upon waking this AM CT DLP: 1403.6 mGycm, Automated exposure control for dose reduction was used. CONTRAST: Patient injected with 0 mL of Isovue 300. CT of the brain is performed utilizing 3 mm thick sections through the posterior fossa and 3 mm thick sections through the remaining calvarium. Study is performed within 24 hours of arrival to the hospital. No abnormal hyperdensity is present to suggest an acute intracranial hemorrhage. No mass lesion is evident. No acute infarcts are evident. Ventricles and sulci are appropriate for the patient age. Note is made of some left septal deviation. Paranasal sinuses and mastoid air cells within the [id number] are clear. IMPRESSIONS: 1. No acute intracranial process. Follow-up MRI can be performed as clinically indicated. CT cervical spine. COMPARISON: None CT of the cervical spine is performed in the axial plane at 2 mm thick sections. Reconstructed image s in the coronal, and sagittal plane are reviewed on the computer. No acute fractures are evident. Vertebral body alignment is normal. There is narrowing of disc height at C4-5 and C5-6 Vertebral body heights are preserved. No spinal canal stenosis is evident. Uncovertebral joint hypertrophy is present at C4-5 with moderate bilateral foraminal stenosis. Uncove rtebral joint hypertrophy is present C5-6 with moderate bilateral foraminal stenosis. IMPRESSIONS: 1. Bilateral foraminal stenosis and degenerative disc changes C4-5 and C5-6.
[2023-01-11 08:40] VITALS: BP 147/82; PULSE 62; RESP 16; TEMP 97.8
== END 2023-01-11 08:40 | disposition home or self-care (01) ==
LOC: EC 07:21
DX: S09.90XA Unspecified injury of head, initial encounter (principal); I10 Essential (primary) hypertension; J45.909 Unspecified asthma, uncomplicated; G40.909 Epilepsy, unspecified, not intractable, without status epilepticus; F41.9 Anxiety disorder, unspecified; F32.A Depression, unspecified; F17.200 Nicotine dependence, unspecified, uncomplicated; Z79.899 Other long term (current) drug therapy; Z88.0 Allergy status to penicillin; Z88.1 Allergy status to other antibiotic agents; Z88.2 Allergy status to sulfonamides; Z88.5 Allergy status to narcotic agent; W01.198A Fall on same level from slipping, tripping and stumbling with subsequent striking against other object, initial encounter
CPT/HCPCS: 70450; 72125; 99283

== ENCOUNTER 2023-02-03 17:42 | Emergency (ER) | payer OTHER ==
[2023-02-03] MEDS ORDERED: MECLIZINE 12.5 MG TAB PO STA (18:46)
[2023-02-03] MEDS ORDERED: SODIUM CHLORIDE 0.9% 1,000 ML IV STA (18:46)
[2023-02-03 19:13] LABS: Basophils # (A) 0.1 k/uL (0-0.2); Basophils % (A) 1 %; Eosinophils # (A) 0.4 k/uL (0-0.7); Eosinophils % (A) 7 %; HCT 43.8 % (34.0-46.0); HGB 14.3 gm/dL (11.4-16.0); Lymphocytes # (A) 1.9 k/uL (1.0-4.8); Lymphocytes % (A) 33 %; MCH 30.5 pg (25.0-35.0); MCHC 32.7 g/dL (31.0-37.0); MCV 93.3 fL (80.0-100.0); Mean Platelet Volume 9.4; Monocytes # (A) 0.3 k/uL (0-1.0); Monocytes % (A) 6 %; Neutrophils # (A) 2.9 k/uL (1.3-7.7); Neutrophils % (A) 51 %; Platelet Count 164 k/uL (150-450); RDW 13.4 % (11.5-15.5); WBC 5.8 k/uL (3.8-10.6)
--- NOTE | 2023-02-03 19:23 | CT ---
EXAMINATION TYPE: CT brain wo con DATE OF EXAM: 02/03/2023 HISTORY: Dizziness. CT DLP: 1143.4 mGycm. Automated Exposure Control for Dose Reduction was Utilized. TECHNIQUE: CT scan of the head is performed without contrast. COMPARISON: 01/11/2023 FINDINGS: There is no acute intracranial hemorrhage or midline shift identified. No mass, mass effect or definite new attenuation defect. The globes are intact and the visualized sinuses are clear. IMPRESSION: No acute CT process.
[2023-02-03 19:25] LABS: ALT 32 U/L (4-34); AST 36 U/L (14-36); African American GFR (CKD) >90 (>60 ml/min/1.73 sqM); Albumin 4.2 g/dL (3.5-5.0); Alkaline Phosphatase 116 U/L (38-126); Anion Gap 9 mmol/L; Blood Urea Nitrogen 11 mg/dL (7-17); Calcium 9.1 mg/dL (8.4-10.2); Carbon Dioxide 25 mmol/L (22-30); Chloride 104 mmol/L (98-107); Glucose 101 mg/dL (74-99); Non-African American GFR(CKD) >90 (>60 ml/min/1.73 sqM); Potassium 4.4 mmol/L (3.5-5.1); Sodium 138 mmol/L (137-145); Total Bilirubin 0.4 mg/dL (0.2-1.3); Total Protein 7.1 g/dL (6.3-8.2)
[2023-02-03 19:35] LABS: Prothrombin Time 10.8 sec (9.0-12.0)
--- NOTE | 2023-02-03 19:35 | XR ---
EXAMINATION TYPE: XR chest 2V DATE OF EXAM: 02/03/2023 7:14 PM COMPARISON: Chest radiographs from 04/04/2021 TECHNIQUE: XR chest 2V Frontal and lateral views of the chest. CLINICAL INDICATION:Female, 57 years old with history of SOB; FINDINGS: Lungs/Pleura: There is no evidence of pleural effusion, focal consolidation, or pneumothorax. Chroni c senescent parenchyma changes. Pulmonary vascularity: Unremarkable. Heart/mediastinum: Cardiomediastinal silhouette is unremarkable. Musculoskeletal: No acute osseous pathology. IMPRESSION: No acute cardiopulmonary disease/process. No significant change from prior examination.
[2023-02-03] MEDS ORDERED: IPRATROPIUM-ALBUTEROL 3 ML NEB INHALATION STA (19:37)
[2023-02-03 20:19] LABS: Appearance,Urine Clear (Clear); Bilirubin,Urine Negative (Negative); Blood,Urine Small (Negative); Color,Urine Light Red; Glucose,Urine (UA) Negative (Negative); Ketones,Urine Negative (Negative); Leukocyte Esterase,Urine Trace (Negative); Mucus,Urine Moderate /hpf; Nitrite,Urine Negative (Negative); PH, Urine 5.5 (5.0-8.0); Protein,Urine Negative (Negative); RBC,Urine 21 /hpf (0-5); Specific Gravity,Urine 1.022 (1.001-1.035); Squamous Epithelial Cell,Urine 2 /hpf (0-4); Urobilinogen,Urine <2.0 mg/dL (<2.0); WBC,Urine 1 /hpf (0-5)
[2023-02-03] MEDS ORDERED: hydrALAZINE HCL 20 MG/ML 1 ML VIAL IVP STA ×2 (20:38→22:30)
[2023-02-03] MEDS ORDERED: predniSONE 20 MG TAB PO STA (20:39)
[2023-02-03 22:13] VITALS: TEMP 98.1
[2023-02-03 22:33] VITALS: BP 166/89; PULSE 69; RESP 20
--- NOTE | 2023-02-03 22:42 | ED ---
Dizziness HPI - General Chief Complaint: Dizziness Stated Complaint: dizziness,blurry, cant walk Time Seen by Provider: 02/03/23 18:32 Source: patient Mode of arrival: wheelchair Limitations: no limitations - History of Present Illness Initial Comments: 57-year-old female presenting with chief complaint of lightheadedness. Patient states that this evening around 520 she began experiencing some lightheadedness. She also states that "I felt like I needed to take my inhaler" because she felt like there was phlegm stuck in her chest. She denies any chest pain, shortness of breath, palpitations, numbness, tingling, weakness, fever, chills, nausea, vomiting, abdominal pain. - Related Data Home Medications Medication Instructions Recorded Confirmed Phenytoin Sodium Extended 100 mg PO TID 04/12/14 02/03/23 [Dilantin] atenoloL [Tenormin] 25 mg PO DAILY 04/12/14 02/03/23 Albuterol Sulfate [Proair Hfa] 2 puff INHALATION RT-QID PRN 07/29/15 02/03/23 LORazepam [Ativan] 1 mg PO TID PRN 08/17/18 02/03/23 Meclizine [Antivert] 25 mg PO TID PRN 08/17/18 02/03/23 Omeprazole 40 mg PO DAILY 08/17/18 02/03/23 Cholecalciferol [Vitamin D3 (25 50 mcg PO DAILY 02/03/23 02/03/23 Mcg = 1000 Iu)] Diclofenac Sodium Gel [Voltaren 1 applic TOPICAL QID PRN 02/03/23 02/03/23 Gel] Fluticasone Nasal [place] [Flonase 1 spray EA NOSTRIL DAILY PRN 02/03/23 02/03/23 Nasal [place]] Magnesium Oxide [Magox 400] 400 mg PO DAILY 02/03/23 02/03/23 Allergies Allergy/AdvReac Type Severity Reaction Status Date / Time ciprofloxacin [From Cipro] Allergy Rash/Hives Verified 02/03/23 22:45 ciprofloxacin HCl Allergy Rash/Hives Verified 02/03/23 22:45 [From Cipro] Penicillins Allergy Rash/Hives Verified 02/03/23 22:45 Sulfa (Sulfonamide Allergy Rash/Hives Verified 02/03/23 22:45 Antibiotics) hydromorphone HCl AdvReac Confusion Verified 02/03/23 22:45 [From Dilaudid] Review of Systems ROS Statement: Those systems with pertinent positive or pertinent negative responses have been documented in the HPI. ROS Other: All systems not noted in ROS Statement are negative. Past Medical History Past Medical History: Asthma, Hypertension, Seizure Disorder Additional Past Medical History / Comment(s): vertigo. LAST SEIZURE "SEVERAL YEARS AGO"; tendonitis in left elbow History of Any Multi-Drug Resistant Organisms: None Reported Past Surgical History: Breast Surgery, Section, Tubal Ligation Additional Past Surgical History / Comment(s): LEFT BREAST BX /NEG. CYST REMOVED RIGHT BUTTOCKS. D & C Past Anesthesia/Blood Transfusion Reactions: Motion Sickness Past Psychological History: Anxiety, Depression Smoking Status: Current every day smoker Past Alcohol Use History: None Reported Past Drug Use History: None Reported - Past Family History Mother Family Medical History: Hypertension Father History Unknown: Yes General Exam Limitations: no limitations General appearance: alert, in no apparent distress Head exam: Present: atraumatic, normocephalic, normal inspection Eye exam: Present: normal appearance, PERRL, EOMI. Absent: scleral icterus, conjunctival injection, periorbital swelling Neck exam: Present: normal inspection, full ROM Respiratory exam: Present: normal lung sounds bilaterally. Absent: respiratory distress, wheezes, rales, rhonchi, stridor Cardiovascular Exam: Present: regular rate, normal rhythm, normal heart sounds. Absent: systolic murmur, diastolic murmur, rubs, gallop, clicks Extremities exam: Present: normal inspection, full ROM Neurological exam: Present: alert, oriented X3, CN II-XII intact Expanded Patient oriented to: Present: person, place, time Speech: Present: fluid speech Cranial nerves: EOM's Intact: Normal Sensory exam: Upper Extremity Light Touch: Normal, Lower Extremity Light Touch: Normal Motor strength exam: RUE: 5, LUE: 5, RLE: 5, LLE: 5 Eye Response: (4) open spontaneously Motor Response: (6) obeys commands Verbal Response: (5) oriented Jazmín Total: 15 Psychiatric exam: Present: anxious Skin exam: Present: warm, dry, intact, normal color. Absent: rash Course Vital Signs 02/03/23 02/03/23 02/03/23 17:56 19:17 19:49 Temperature 98.3 F 98.3 F Pulse Rate 75 72 75 Respiratory 20 17 Rate Blood Pressure 178/92 182/92 O2 Sat by Pulse 93 L 94 L Oximetry 02/03/23 02/03/23 02/03/23 19:58 20:25 21:31 Temperature 98.7 F 97.6 F Pulse Rate 71 70 70 Respiratory 19 20 Rate Blood Pressure 191/94 189/91 O2 Sat by Pulse 94 L 93 L Oximetry 02/03/23 02/03/23 02/03/23 22:00 22:13 22:32 Temperature 98.1 F Pulse Rate 73 69 Respiratory 19 20 Rate Blood Pressure 173/90 190/86 166/89 O2 Sat by Pulse 95 94 L Oximetry EKG Findings - EKG Comments: EKG Findings:: Sinus rhythm ventricular rate 70. TN interval 160. QRS 92. QT 394. QTC 415. Normal axis. Medical Decision Making - Medical Decision Making Was pt. sent in by a medical professional or institution (, PA, BIOFUELS TECHNOLOGY MANAGER, urgent care, hospital, or fdc...) When possible be specific @ -No Did you speak to anyone other than the patient for history (EMS, parent, family, police, friend...)? What history was obtained from this source @ -No Did you review nursing and triage notes (agree or disagree)? Why? @ -I reviewed and agree with nursing and triage notes Were old charts reviewed (outside hosp., previous admission, EMS record, old EKG, old radiological studies, urgent care reports/EKG's, fdc records)? Report findings @ -No old charts were reviewed Differential Diagnosis (chest pain, altered mental status, abdominal pain women, abdominal pain men, vaginal bleeding, weakness, fever, dyspnea, syncope, headache, dizziness, GI bleed, back pain, seizure, CVA, palpatations, mental health, musculoskeletal)? @ -MDM Differential Dizziness: Benign paroxysmal positional Vertigo, Menieres disease, otitis media, acou stic neuroma, vertebrobasilar insufficiency, cerebellar stroke, encephalitis, hypovolemic, arrhythmia, coronary artery syndrome, anemia this is not meant to be an all-inclusive list EKG interpreted by me (3pts min.). @ -As above X-rays interpreted by me (1pt min.). @ -About x-ray shows no acute cardiopulmonary process CT interpreted by me (1pt min.). @ -CT of brain negative for acute process U/S interpreted by me (1pt. min.). @ -None done What testing was considered but not performed or refused? (CT, X-rays, U/S, labs)? Why? @ -None What meds were considered but not given or refused? Why? @ -None Did you discuss the management of the patient with other professionals (professionals i.e. DrRyne, PA, BIOFUELS TECHNOLOGY MANAGER, lab, RT, psych nurse, social media strategist, distribution systems serviceperson, teacher, workers' compensation hearings officer, case mgr)? Give summary @ -No Was smoking cessation discussed for >3mins.? @ -No Was critical care preformed (if so, how long)? @ -No Were there social determinants of health that impacted care today? How? (Homelessness, low income, unemployed, alcoholism, drug addiction, transportation, low edu. Level, literacy, decrease access to med. care, [facility], rehab)? @ -No Was there de-escalation of care discussed even if they declined (Discuss DNR or withdrawal of care, Hospice)? DNR status @ -No What co-morbidities impacted this encounter? (DM, HTN, Smoking, COPD, CAD, Cancer, CVA, ARF, Chemo, Hep., AIDS, mental health diagnosis, sleep apnea, morbid obesity)? @ -None Was patient admitted / discharged? Hospital course, mention meds given and route, prescriptions, significant lab abnormalities, going to OR and other pertinent info. @ -57-year-old female presenting with chief complaint of dizziness that started this afternoon. On physical examination the patient is hypertensive and anxious. Patient took her home dose of lorazepam. Lab work shows no leukocytosis or anemia. Troponin is negative. Urine is positive for small blood, patient is having no urinary symptoms. CT of brain shows no acute process and chest x-ray shows no acute cardiopulmonary process. Patient was given hydralazine for hypertension. On reassessment she is resting comfortably, she has no continued symptoms of dizziness. She is educated on today's findings and instructed to follow-up with her PCP. Educated on taking her blood pressure at home and keeping a blood pressure diary. Follow-up with PCP. Report back to ER with any new or worsening symptoms. Discussed return parameters and answered all questions. Patient conveyed verbal understanding and agreed to the plan. I discussed this case in detail with my attending Dr. Weaver Undiagnosed new problem with uncertain prognosis? @ -No Drug Therapy requiring intensive monitoring for toxicity (Heparin, Nitro, Insulin, Cardizem)? @ -No Were any procedures done? @ -No Diagnosis/symptom? @ -Lightheadedness Acute, or Chronic, or Acute on Chronic? @ -Acute Uncomplicated (without systemic symptoms) or Complicated (systemic symptoms)? @ -Uncomplicated Side effects of treatment? @ -No Exacerbation, Progression, or Severe Exacerbation? @ -No Poses a threat to life or bodily function? How? (Chest pain, [place], [place], pneumonia, PE, COPD, DKA, ARF, appy, cholecystitis, CVA, Diverticulitis, Homicidal, Suicidal, threat to staff... and all critical care pts) @ -No Diagnosis/symptom? @ hypertension Acute, or Chronic, or Acute on Chronic? @Acute on chronic Uncomplicated (without systemic symptoms) or Complicated (systemic symptoms)? @Complicated Side effects of treatment? @ none Exacerbation, Progression, or Severe Exacerbation] @ no Poses a threat to life or bodily function? @Potential termite helper threat - Lab Data Result diagrams: 02/03/23 19:00 02/03/23 19:00 Lab Results 02/03/23 02/03/23 02/03/23 Range/Units 19:00 19:00 19:00 WBC 5.8 (3.8-10.6) k/uL RBC 4.70 (3.80-5.40) m/uL Hgb 14.3 (11.4-16.0) gm/dL Hct 43.8 (34.0-46.0) % MCV 93.3 (80.0-100.0) fL MCH 30.5 (25.0-35.0) pg MCHC 32.7 (31.0-37.0) g/dL RDW 13.4 (11.5-15.5) % Plt Count 164 (150-450) k/uL MPV 9.4 Neutrophils % 51 % Lymphocytes % 33 % Monocytes % 6 % Eosinophils % 7 % Basophils % 1 % Neutrophils # 2.9 (1.3-7.7) k/uL Lymphocytes # 1.9 (1.0-4.8) k/uL Monocytes # 0.3 (0-1.0) k/uL Eosinophils # 0.4 (0-0.7) k/uL Basophils # 0.1 (0-0.2) k/uL PT 10.8 (9.0-12.0) sec INR 1.0 (<1.2) Sodium (137-145) mmol/L Potassium (3.5-5.1) mmol/L Chloride (98-107) mmol/L Carbon Dioxide (22-30) mmol/L Anion Gap mmol/L BUN (7-17) mg/dL Creatinine (0.52-1.04) mg/dL Est GFR (CKD-EPI)AfAm (>60 ml/min/1.73 sqM) Est GFR (CKD-EPI)NonAf (>60 ml/min/1.73 sqM) Glucose (74-99) mg/dL Plasma Lactic Acid Jose (0.7-2.0) mmol/L Calcium (8.4-10.2) mg/dL Total Bilirubin (0.2-1.3) mg/dL AST (14-36) U/L ALT (4-34) U/L Alkaline Phosphatase (38-126) U/L Troponin I (0.000-0.034) ng/mL Total Protein (6.3-8.2) g/dL Albumin (3.5-5.0) g/dL Urine Color Light Red Urine Appearance Clear (Clear) Urine pH 5.5 (5.0-8.0) Ur Specific [place] 1.022 (1.001-1.035) Urine Protein Negative (Negative) Urine Glucose (UA) Negative (Negative) Urine Ketones Negative (Negative) Urine Blood Small H (Negative) Urine Nitrite Negative (Negative) Urine Bilirubin Negative (Negative) Urine Urobilinogen <2.0 (<2.0) mg/dL Ur Leukocyte Esterase Trace H (Negative) Urine RBC 21 H (0-5) /hpf Urine WBC 1 (0-5) /hpf Ur Squamous Epith Cells 2 (0-4) /hpf Urine Mucus Moderate H (None) /hpf 02/03/23 02/03/23 02/03/23 Range/Units 19:00 19:00 19:00 WBC (3.8-10.6) k/uL RBC (3.80-5.40) m/uL Hgb (11.4-16.0) gm/dL Hct (34.0-46.0) % MCV (80.0-100.0) fL MCH (25.0-35.0) pg MCHC (31.0-37.0) g/dL RDW (11.5-15.5) % Plt Count (150-450) k/uL MPV Neutrophils % % Lymphocytes % % Monocytes % % Eosinophils % % Basophils % % Neutrophils # (1.3-7.7) k/uL Lymphocytes # (1.0-4.8) k/uL Monocytes # (0-1.0) k/uL Eosinophils # (0-0.7) k/uL Basophils # (0-0.2) k/uL PT (9.0-12.0) sec INR (<1.2) Sodium 138 (137-145) mmol/L Potassium 4.4 (3.5-5.1) mmol/L Chloride 104 (98-107) mmol/L Carbon Dioxide 25 (22-30) mmol/L Anion Gap 9 mmol/L BUN 11 (7-17) mg/dL Creatinine 0.57 (0.52-1.04) mg/dL Est GFR (CKD-EPI)AfAm >90 (>60 ml/min/1.73 sqM) Est GFR (CKD-EPI)NonAf >90 (>60 ml/min/1.73 sqM) Glucose 101 H (74-99) mg/dL Plasma Lactic Acid Jose 1.1 (0.7-2.0) mmol/L Calcium 9.1 (8.4-10.2) mg/dL Total Bilirubin 0.4 (0.2-1.3) mg/dL AST 36 (14-36) U/L ALT 32 (4-34) U/L Alkaline Phosphatase 116 (38-126) U/L Troponin I <0.012 (0.000-0.034) ng/mL Total Protein 7.1 (6.3-8.2) g/dL Albumin 4.2 (3.5-5.0) g/dL Urine Color Urine Appearance (Clear) Urine pH (5.0-8.0) Ur Specific [place] (1.001-1.035) Urine Protein (Negative) Urine Glucose (UA) (Negative) Urine Ketones (Negative) Urine Blood (Negative) Urine Nitrite (Negative) Urine Bilirubin (Negative) Urine Urobilinogen (<2.0) mg/dL Ur Leukocyte Esterase (Negative) Urine RBC (0-5) /hpf Urine WBC (0-5) /hpf Ur Squamous Epith Cells (0-4) /hpf Urine Mucus (None) /hpf Disposition Clinical Impression: Lightheadedness Disposition: HOME SELF-CARE Condition: Good Instructions (If sedation given, give patient instructions): Dizziness (ED) Additional Instructions: Follow-up with PCP. Report back to ER with any new or worsening symptoms. Is patient prescribed a controlled substance at d/c from ED?: No Referrals: Paresh Li MD [Primary Care Provider] - 1-2 days Time of Disposition: 22:42
== END 2023-02-03 22:50 | disposition home or self-care (01) ==
LOC: EC 17:42
DX: I10 Essential (primary) hypertension (principal); J45.909 Unspecified asthma, uncomplicated; F41.9 Anxiety disorder, unspecified; F32.A Depression, unspecified; G40.909 Epilepsy, unspecified, not intractable, without status epilepticus; F17.200 Nicotine dependence, unspecified, uncomplicated; Z79.899 Other long term (current) drug therapy; Z88.0 Allergy status to penicillin; Z88.1 Allergy status to other antibiotic agents; Z88.2 Allergy status to sulfonamides
CPT/HCPCS: 36415; 94640; 93005; 80053; 83605; 84484; 85025; 85610; 81001; 71046; 70450; 99285; 96374; 96361; J0360; J7512

== ENCOUNTER 2023-05-31 13:42 | Emergency (ER) | payer OTHER ==
[2023-05-31 13:52] VITALS: TEMP 98
[2023-05-31 14:04] LABS: Basophils # (A) 0.1 k/uL (0-0.2); Basophils % (A) 1 %; Eosinophils # (A) 0.2 k/uL (0-0.7); Eosinophils % (A) 4 %; HCT 45.6 % (34.0-46.0); Lymphocytes % (A) 30 %; MCH 30.9 pg (25.0-35.0); MCHC 32.8 g/dL (31.0-37.0); MCV 94.2 fL (80.0-100.0); Mean Platelet Volume 8.6; Monocytes # (A) 0.3 k/uL (0-1.0); Monocytes % (A) 5 %; Neutrophils # (A) 3.8 k/uL (1.3-7.7); Neutrophils % (A) 58 %; Platelet Count 215 k/uL (150-450); RBC 4.84 m/uL (3.80-5.40); RDW 13.1 % (11.5-15.5); WBC 6.5 k/uL (3.8-10.6)
[2023-05-31 14:25] LABS: ALT 26 U/L (4-34); AST 28 U/L (14-36); African American GFR (CKD) >90 (>60 ml/min/1.73 sqM); Albumin 4.2 g/dL (3.5-5.0); Alkaline Phosphatase 124 U/L (38-126); Anion Gap 12 mmol/L; Blood Urea Nitrogen 18 mg/dL (7-17); Calcium 9.6 mg/dL (8.4-10.2); Carbon Dioxide 23 mmol/L (22-30); Chloride 105 mmol/L (98-107); Glucose 125 mg/dL (74-99); Non-African American GFR(CKD) >90 (>60 ml/min/1.73 sqM); Potassium 4.4 mmol/L (3.5-5.1); Sodium 140 mmol/L (137-145); Total Bilirubin 0.4 mg/dL (0.2-1.3); Total Protein 7.2 g/dL (6.3-8.2)
--- NOTE | 2023-05-31 15:17 | ED ---
General Adult HPI - General Chief complaint: Recheck/Abnormal Lab/Rx Stated complaint: high blood pressure Time Seen by Provider: 05/31/23 14:46 Source: patient Mode of arrival: ambulatory Limitations: no limitations - History of Present Illness Initial comments: This patient is 58-year-old woman who presents here to have evaluation for hypertension. She states she was at work and when her blood pressure was checked was found to be elevated. She states this set off some anxiety. She has not been having chest pain, dyspnea, headache, neurologic symptoms, abdominal pain -: hour(s) Severity scale (1-10): 0 Consistency: constant Improves with: none Worsens with: none Associated Symptoms: denies other symptoms Treatments Prior to Arrival: none - Related Data Home Medications Medication Instructions Recorded Confirmed Phenytoin Sodium Extended 100 mg PO TID 04/12/14 02/03/23 [Dilantin] atenoloL [Tenormin] 25 mg PO DAILY 04/12/14 02/03/23 Albuterol Sulfate [Proair Hfa] 2 puff INHALATION RT-QID PRN 07/29/15 02/03/23 LORazepam [Ativan] 1 mg PO TID PRN 08/17/18 02/03/23 Meclizine [Antivert] 25 mg PO TID PRN 08/17/18 02/03/23 Omeprazole 40 mg PO DAILY 08/17/18 02/03/23 Cholecalciferol [Vitamin D3 (25 50 mcg PO DAILY 02/03/23 02/03/23 Mcg = 1000 Iu)] Diclofenac Sodium Gel [Voltaren 1 applic TOPICAL QID PRN 02/03/23 02/03/23 Gel] Fluticasone Nasal [place] [Flonase 1 spray EA NOSTRIL DAILY PRN 02/03/23 02/03/23 Nasal [place]] Magnesium Oxide [Magox 400] 400 mg PO DAILY 02/03/23 02/03/23 Allergies Allergy/AdvReac Type Severity Reaction Status Date / Time ciprofloxacin [From Cipro] Allergy Rash/Hives Verified 05/31/23 13:49 ciprofloxacin HCl Allergy Rash/Hives Verified 05/31/23 13:49 [From Cipro] Penicillins Allergy Rash/Hives Verified 05/31/23 13:49 Sulfa (Sulfonamide Allergy Rash/Hives Verified 05/31/23 13:49 Antibiotics) hydromorphone HCl AdvReac Confusion Verified 05/31/23 13:49 [From Dilaudid] Review of Systems ROS Statement: Those systems with pertinent positive or pertinent negative responses have been documented in the HPI. ROS Other: All systems not noted in ROS Statement are negative. Constitutional: Denies: fever, chills, weakness Eyes: Denies: vision change Respiratory: Denies: cough, dyspnea Cardiovascular: Denies: chest pain, palpitations, edema, syncope Gastrointestinal: Denies: abdominal pain, nausea, vomiting Genitourinary: Denies: dysuria, frequency Musculoskeletal: Denies: back pain Skin: Denies: rash Neurological: Denies: headache Past Medical History Past Medical History: Asthma, Hypertension, Seizure Disorder Additional Past Medical History / Comment(s): vertigo. LAST SEIZURE "SEVERAL YEARS AGO"; tendonitis in left elbow History of Any Multi-Drug Resistant Organisms: None Reported Past Surgical History: Breast Surgery, Section, Tubal Ligation Additional Past Surgical History / Comment(s): LEFT BREAST BX /NEG. CYST REMOVED RIGHT BUTTOCKS. D & C Past Anesthesia/Blood Transfusion Reactions: Motion Sickness Past Psychological History: Anxiety, Depression Smoking Status: Current every day smoker Past Alcohol Use History: None Reported Past Drug Use History: None Reported - Past Family History Mother Family Medical History: Hypertension Father History Unknown: Yes General Exam Limitations: no limitations General appearance: alert, in no apparent distress, anxious Head exam: Present: atraumatic, normocephalic Eye exam: Present: normal appearance. Absent: scleral icterus, conjunctival injection Neck exam: Present: normal inspection Respiratory exam: Present: normal lung sounds bilaterally. Absent: respiratory distress, wheezes, rales, rhonchi, stridor Cardiovascular Exam: Present: regular rate, normal rhythm, normal heart sounds. Absent: systolic murmur, diastolic murmur, rubs, gallop GI/Abdominal exam: Present: soft. Absent: distended, tenderness, guarding, rebound, rigid Extremities exam: Present: normal inspection, normal capillary refill. Absent: pedal edema, calf tenderness Back exam: Present: normal inspection. Absent: CVA tenderness (R), CVA tenderness (L) Neurological exam: Present: alert Skin exam: Present: warm, dry, intact, normal color. Absent: rash Course Vital Signs 05/31/23 05/31/23 13:46 14:41 Temperature 98 F Pulse Rate 82 73 Respiratory 18 16 Rate Blood Pressure 179/82 141/72 O2 Sat by Pulse 94 L 95 Oximetry Medical Decision Making - Medical Decision Making Was pt. sent in by a medical professional or institution (, PA, HYDRAULIC DESIGN ENGINEER, urgent care, hospital, or long term...) When possible be specific @ -[No] Did you speak to anyone other than the patient for history (EMS, parent, family, police, friend...)? What history was obtained from this source @ -[No] Did you review nursing and triage notes (agree or disagree)? Why? @ -[I reviewed and agree with nursing and triage notes] Were old charts reviewed (outside hosp., previous admission, EMS record, old EKG, old radiological studies, urgent care reports/EKG's, long term records)? Report findings @ -[No old charts were reviewed] Differential Diagnosis (chest pain, altered mental status, abdominal pain women, abdominal pain men, vaginal bleeding, weakness, fever, dyspnea, syncope, headache, dizziness, GI bleed, back pain, seizure, CVA, palpatations, mental health, musculoskeletal)? @ -[Amphetamine Toxicity Anxiety Disorders Apnea, Sleep Cocaine-Related Cardiomyopathy Heart Failure Hyperthyroidism, Thyroid Storm, and Graves Disease Hypertrophic Cardiomyopathy Myocardial Infarction Phencyclidine Toxicity Primary Aldosteronism Stroke, Hemorrhagic Stroke, Ischemic EKG interpreted by me (3pts min.). @ -[As above] X-rays interpreted by me (1pt min.). @ -[None done] CT interpreted by me (1pt min.). @ -[None done] U/S interpreted by me (1pt. min.). @ -[None done] What testing was considered but not performed or refused? (CT, X-rays, U/S, labs)? Why? @ -[None] What meds were considered but not given or refused? Why? @ -[None] Did you discuss the management of the patient with other professionals (professionals i.e. , GISSELL, HYDRAULIC DESIGN ENGINEER, lab, RT, psych nurse, social contact worker, transit clerk, teacher, chief growth officer, case filler)? Give summary @ -[No] Was smoking cessation discussed for >3mins.? @ -[No] Was critical care preformed (if so, how long)? @ -[No] Were there social determinants of health that impacted care today? How? (Homelessness, low income, unemployed, alcoholism, drug addiction, transportation, low edu. Level, literacy, decrease access to med. care, residential, rehab)? @ -[No] Was there de-escalation of care discussed even if they declined (Discuss DNR or withdrawal of care, Hospice)? DNR status @ -[No] What co-morbidities impacted this encounter? (DM, HTN, Smoking, COPD, CAD, Cancer, CVA, ARF, Chemo, Hep., AIDS, mental health diagnosis, sleep apnea, morbid obesity)? @ -[None] Was patient admitted / discharged? Hospital course, mention meds given and route, prescriptions, significant lab abnormalities, going to OR and other pertinent info. @ -[Patient is 58-year-old woman here to have evaluation of hypertension. Asymptomatic. Workup unremarkable. Patient will follow with her physician to adjust antihypertensive regimen, discussed return parameters Undiagnosed new problem with uncertain prognosis? @ -[No] Drug Therapy requiring intensive monitoring for toxicity (Heparin, Nitro, Insulin, Cardizem)? @ -[No] Were any procedures done? @ -[No] Diagnosis/symptom? @ -[Acute on chronic hypertension Acute, or Chronic, or Acute on Chronic? @ -[Acute on chronic Uncomplicated (without systemic symptoms) or Complicated (systemic symptoms)? @ -[Uncomplicated Side effects of treatment? @ -[No] Exacerbation, Progression, or Severe Exacerbation? @ -[No] Poses a threat to life or bodily function? How? (Chest pain, [place], [place], pneumonia, PE, COPD, DKA, ARF, appy, cholecystitis, CVA, Diverticulitis, Homicidal, Suicidal, threat to staff... and all critical care pts) @ -[No] - Lab Data Result diagrams: 05/31/23 13:54 05/31/23 13:54 Lab Results 05/31/23 05/31/23 Range/Units 13:54 13:54 WBC 6.5 (3.8-10.6) k/uL RBC 4.84 (3.80-5.40) m/uL Hgb 15.0 (11.4-16.0) gm/dL Hct 45.6 (34.0-46.0) % MCV 94.2 (80.0-100.0) fL MCH 30.9 (25.0-35.0) pg MCHC 32.8 (31.0-37.0) g/dL RDW 13.1 (11.5-15.5) % Plt Count 215 (150-450) k/uL MPV 8.6 Neutrophils % 58 % Lymphocytes % 30 % Monocytes % 5 % Eosinophils % 4 % Basophils % 1 % Neutrophils # 3.8 (1.3-7.7) k/uL Lymphocytes # 2.0 (1.0-4.8) k/uL Monocytes # 0.3 (0-1.0) k/uL Eosinophils # 0.2 (0-0.7) k/uL Basophils # 0.1 (0-0.2) k/uL Sodium 140 (137-145) mmol/L Potassium 4.4 (3.5-5.1) mmol/L Chloride 105 (98-107) mmol/L Carbon Dioxide 23 (22-30) mmol/L Anion Gap 12 mmol/L BUN 18 H (7-17) mg/dL Creatinine 0.62 (0.52-1.04) mg/dL Est GFR (CKD-EPI)AfAm >90 (>60 ml/min/1.73 sqM) Est GFR (CKD-EPI)NonAf >90 (>60 ml/min/1.73 sqM) Glucose 125 H (74-99) mg/dL Calcium 9.6 (8.4-10.2) mg/dL Total Bilirubin 0.4 (0.2-1.3) mg/dL AST 28 (14-36) U/L ALT 26 (4-34) U/L Alkaline Phosphatase 124 (38-126) U/L Total Protein 7.2 (6.3-8.2) g/dL Albumin 4.2 (3.5-5.0) g/dL Disposition Clinical Impression: Hypertension Disposition: HOME SELF-CARE Condition: Good Instructions (If sedation given, give patient instructions): Hypertension (ED) Is patient prescribed a controlled substance at d/c from ED?: No Referrals: Paresh Li MD [Primary Care Provider] - 1-2 days
[2023-05-31 15:27] VITALS: BP 141/72; PULSE 73; RESP 16
== END 2023-05-31 15:23 | disposition home or self-care (01) ==
LOC: EC 13:42
DX: I10 Essential (primary) hypertension (principal); F41.9 Anxiety disorder, unspecified; J45.909 Unspecified asthma, uncomplicated; F32.A Depression, unspecified; F17.200 Nicotine dependence, unspecified, uncomplicated; Z79.899 Other long term (current) drug therapy; Z88.0 Allergy status to penicillin; Z88.2 Allergy status to sulfonamides; Z88.5 Allergy status to narcotic agent; Z88.8 Allergy status to other drugs, medicaments and biological substances
CPT/HCPCS: 36415; 80053; 85025; 99283

== ENCOUNTER → 2023-08-03 | Outpatient (CLI) | payer OTHER ==
--- NOTE | 2023-08-05 10:20 | MM ---
Reason for Exam: Screening (asymptomatic). Last mammogram was performed 5 year(s) and 0 month(s) ago. Patient History: Menarche at age 12. First Full-Term at age 16. Postmenopausal. Other cancer. 2012, Benign Ultrasound-Guided Core Biopsy on the left side. Maternal aunt had breast cancer, age 50. Sister had breast cancer, age 30. Risk Values: Esmer 5 year model risk: 2.9%. NCI Lifetime model risk: 14.2%. Prior Study Comparison: 09/19/2012 Screening Mammogram, Unknown. 04/02/2017 Bilateral Screening Mammogram, [facility]. 08/09/2018 Bilateral Diagnostic Mammogram, [facility]. Tissue Density: There are scattered fibroglandular densities. Findings: Analyzed By CAD. There is no suspicious group of microcalcifications or new suspicious mass in either breast. Overall Assessment: Benign, BI-RAD 2 Management: Screening Mammogram of both breasts in 1 year. . Patient should continue monthly self-breast exams. A clinical breast exam by your physician is recommended on an annual basis. This exam should not preclude additional follow-up of suspicious palpable abnormalities. Note on Esmer scores and lifetime risk: 1. A Esmer score greater than 3% is considered moderate risk. If this is the case, consider specialist referral to assess eligibility for a risk reducing agent. 2. If overall lifetime risk for the development of breast cancer is 20% or higher, the patient may qualify for future screening with alternating mammogram and breast MRI. Electronically signed and approved by: Attila Sanders M.D. Radiologis
== END | disposition home or self-care (01) ==
LOC: RADMAMWWP 16:51
PROVIDERS: ATTEND Internal Medicine
DX: Z12.31 Encounter for screening mammogram for malignant neoplasm of breast (principal); Z78.0 Asymptomatic menopausal state; Z80.3 Family history of malignant neoplasm of breast
CPT/HCPCS: 77067

== ENCOUNTER → 2023-08-18 | Outpatient (CLI) | payer OTHER ==
--- NOTE | 2023-08-18 21:00 | BD ---
EXAMINATION TYPE: Axial Bone Density DATE OF EXAM: 08/18/2023 CLINICAL HISTORY: 58 years old Female. ICD-10 CODE: Z78.0 ASYMPTOMATIC MENOPAUSAL STATE Height: 65" Weight: 159.1lbs FRAX RISK QUESTIONS: Alcohol (3 or more units per day): No Family History (Parent hip fracture): No Glucocorticoids (More than 3mos): No (Ex: prednisone, prednisolone, methylprednisolone, dexamethasone, and hydrocortisone). History of Fracture in Adulthood: No Secondary Osteoporosis: 1. Type 1 Diabetes: No 2. Hyperthyroidism: No 3. Menopause before 45: No 4. Malnutrition: No 5. Chronic liver disease: No Rheumatoid Arthritis: No Current Tobacco Use: Yes RISK FACTORS HISTORY OF: Hip Fracture (Right/Left): No Spine Fracture: No History of Wrist Fracture: No Surgery to Spine/Hip(right/left)/Wrist (right/left): No MEDICATIONS: Thyroid Medications: No Osteoporosis Medications: No EXAM MEASUREMENTS: Bone mineral densitometry was performed using the [employer] System. Bone mineral density as measured about the Lumbar spine is: ----- L1-L4(G/cm2): 1.007 T Score Values are as follows: ----- L1: -1.9 ----- L2: -1.8 ----- L3: -0.9 ----- L4: -1.4 ----- L1-L4: -1.4 Z Score Values are as follows: ----- L1: -1.0 ----- L2: -0.9 ----- L3: 0.0 ----- L4: -0.6 ----- L1-L4: -0.6 Baseline @MPH Bone mineral density about the R hip (g/cm2): 0.681 Bone mineral density about the L hip (g/cm2): 0.694 T Score values are as follows: -----R Neck: -2.9 -----L Neck: -2.8 -----R Total: -2.6 -----L Total: -2.5 Z Score values are as follows: -----R Neck: -1.8 -----L Neck: -1.8 -----R Total: -1.9 -----L Total: -1.8 Baseline @MPH FRAX%s: The graph provided illustrates a 15.2% chance for a major osteoporotic fx and a 5.7% chance f or the hips probability for fx in 10 years time. IMPRESSION: Osteoporosis (T Score less than -2.5). There is increased fracture risk and therapy is usually indicated based on age. Re-Screen 1-2 years. NOTE: T-SCORE=SD OF THE YOUNG ADULT MEAN.
== END | disposition home or self-care (01) ==
LOC: RADBDWWP 08:22
PROVIDERS: ATTEND Internal Medicine
DX: M81.0 Age-related osteoporosis without current pathological fracture (principal); M85.89 Other specified disorders of bone density and structure, multiple sites; Z78.0 Asymptomatic menopausal state
CPT/HCPCS: 77080

== ENCOUNTER 2023-09-07 20:31 | Emergency (ER) | payer OTHER ==
--- NOTE | 2023-09-07 20:55 | ED ---
General Adult HPI - General Source: patient, RN notes reviewed Mode of arrival: ambulatory Limitations: no limitations <Mary Baker - Last Filed: 09/07/23 20:54> <Doc Sim - Last Filed: 09/08/23 00:15> - General Chief complaint: Extremity Injury, Lower Stated complaint: Toe Pain/Swelling left Foot Time Seen by Provider: 09/07/23 20:54 - History of Present Illness Initial comments: Quick note: Patient is a 58-year-old female presented to ER with chief complaint of left third toe pain. She states it has been going on for the past day. Denies any known injury. (Mary Baker) 58-year-old female presents to the ED with a chief complaint of toe pain. Patient states that she recently started a new position at her job and notes that she has to walk more often. Patient notes that she wears "crappy shoes". States over the past day has developed pain of her left third toe. Denies any known injury. No fever or chills. No other complaints at this time. (Doc Sim) - Related Data Home Medications Medication Instructions Recorded Confirmed Phenytoin Sodium Extended 100 mg PO TID 04/12/14 02/03/23 [Dilantin] atenoloL [Tenormin] 25 mg PO DAILY 04/12/14 02/03/23 Albuterol Sulfate [Proair Hfa] 2 puff INHALATION RT-QID PRN 07/29/15 02/03/23 LORazepam [Ativan] 1 mg PO TID PRN 08/17/18 02/03/23 Meclizine [Antivert] 25 mg PO TID PRN 08/17/18 02/03/23 Omeprazole 40 mg PO DAILY 08/17/18 02/03/23 Cholecalciferol [Vitamin D3 (25 50 mcg PO DAILY 02/03/23 02/03/23 Mcg = 1000 Iu)] Diclofenac Sodium Gel [Voltaren 1 applic TOPICAL QID PRN 02/03/23 02/03/23 Gel] Fluticasone Nasal [place] [Flonase 1 spray EA NOSTRIL DAILY PRN 02/03/23 02/03/23 Nasal [place]] Magnesium Oxide [Magox 400] 400 mg PO DAILY 02/03/23 02/03/23 Previous Rx's Medication Instructions Recorded Clindamycin [Cleocin] 450 mg PO TID #63 capsule 09/08/23 Allergies Allergy/AdvReac Type Severity Reaction Status Date / Time ciprofloxacin [From Cipro] Allergy Rash/Hives Verified 09/07/23 20:46 ciprofloxacin HCl Allergy Rash/Hives Verified 09/07/23 20:46 [From Cipro] Penicillins Allergy Rash/Hives Verified 09/07/23 20:46 Sulfa (Sulfonamide Allergy Rash/Hives Verified 09/07/23 20:46 Antibiotics) hydromorphone HCl AdvReac Confusion Verified 09/07/23 20:46 [From Dilaudid] Review of Systems ROS Other: All systems not noted in ROS Statement are negative. <Mary Baker - Last Filed: 09/07/23 20:54> ROS Other: All systems not noted in ROS Statement are negative. <Doc Sim - Last Filed: 09/08/23 00:15> ROS Statement: Those systems with pertinent positive or pertinent negative responses have been documented in the HPI. Past Medical History Past Medical History: Asthma, Hypertension, Seizure Disorder Additional Past Medical History / Comment(s): vertigo. LAST SEIZURE "SEVERAL YEARS AGO"; tendonitis in left elbow History of Any Multi-Drug Resistant Organisms: None Reported Past Surgical History: Breast Surgery, Section, Tubal Ligation Additional Past Surgical History / Comment(s): LEFT BREAST BX /NEG. CYST REMOVED RIGHT BUTTOCKS. D & C Past Anesthesia/Blood Transfusion Reactions: Motion Sickness Past Psychological History: Anxiety, Depression Smoking Status: Current every day smoker Past Alcohol Use History: None Reported Past Drug Use History: None Reported - Past Family History Mother Family Medical History: Hypertension Father History Unknown: Yes <Mary Baker - Last Filed: 09/07/23 20:54> General Exam Limitations: no limitations <Mary Baker - Last Filed: 09/07/23 20:54> Limitations: no limitations General appearance: alert, in no apparent distress Eye exam: Present: normal appearance Neck exam: Present: normal inspection Respiratory exam: Present: normal lung sounds bilaterally Cardiovascular Exam: Present: regular rate, normal rhythm GI/Abdominal exam: Present: soft Extremities exam: Present: other (Patient has redness, warmth, erythema of the left third toe with some swelling. Tender to the touch.) Neurological exam: Present: alert, oriented X3 Skin exam: Present: warm, dry <Doc Sim - Last Filed: 09/08/23 00:15> - General Exam Comments Initial Comments: Visual Physical Exam Vital signs reviewed General: Well-appearing, nontoxic, no acute distress. Head: Normocephalic, atraumatic Eyes: PERRLA, EOMI ENT: Airway patent Chest: Nonlabored breathing Skin: No visual rash, normal skin tone Neuro: Alert and oriented 3 Musculoskeletal: No gross abnormalities (Mary Baker) Course Vital Signs 09/07/23 09/07/23 20:42 23:00 Temperature 98.2 F 98.5 F Pulse Rate 70 66 Respiratory 18 18 Rate Blood Pressure 154/82 152/85 O2 Sat by Pulse 94 L 97 Oximetry Procedures - Incision & Drainage Site: lower extremity Size (cm): 2 Anesthetic Used: lidocaine 1% Amount (mLs): 2 I&D Cleaning Method: Betadine Irrigation Performed?: Yes I&D Drainage Obtained: Blood, Serous Culture Obtained?: Yes Patient Tolerated Procedure: well, no complications, other (Needle aspiration was performed) <Doc Sim - Last Filed: 09/08/23 00:15> Medical Decision Making <Mary Baker - Last Filed: 09/07/23 20:54> <Doc Sim - Last Filed: 09/08/23 00:15> - Medical Decision Making I performed the quick note portion of this chart. Electronically signed by Mary Baker PA-C (Mary Baker) Was pt. sent in by a medical professional or institution ([facility] Teague, [facility], urgent care, hospital, or halfway...) When possible be specific @ -No Did you speak to anyone other than the patient for history (EMS, parent, family, police, friend...)? What history was obtained from this source @ -No Did you review nursing and triage notes (agree or disagree)? Why? @ -I reviewed and agree with nursing and triage notes Were old charts reviewed (outside hosp., previous admission, EMS record, old EKG, old radiological studies, urgent care reports/EKG's, halfway records)? Report findings @ -No old charts were reviewed Differential Diagnosis (chest pain, altered mental status, abdominal pain women, abdominal pain men, vaginal bleeding, weakness, fever, dyspnea, syncope, headache, dizziness, GI bleed, back pain, seizure, CVA, palpatations, mental health, musculoskeletal)? @ -Differential Musculoskeletal Muscular strain, contusion, ligament sprain, fracture, arthritis, septic arthritis, bursitis, cellulitis, muscle spasm, nerve compression, DVT, arterial occlusion, herpes zoster, electrolyte abnormality, tumor.... This is not meant to be in all inclusive list EKG interpreted by me (3pts min.). @ -None X-rays interpreted by me (1pt min.). @ -X-ray interpreted me which showed no evidence of osteomyelitis, fracture or other acute finding. CT interpreted by me (1pt min.). @ -None done U/S interpreted by me (1pt. min.). @ -None done What testing was considered but not performed or refused? (CT, X-rays, U/S, labs)? Why? @ -None What meds were considered but not given or refused? Why? @ -None Did you discuss the management of the patient with other professionals (professionals i.e. , PA, [employer], lab, RT, psych nurse, social service technician, nonprofit financial controller, teacher, supply requirements officer, sample case porter)? Give summary @ -No Was smoking cessation discussed for >3mins.? @ -No Was critical care preformed (if so, how long)? @ -No Were there social determinants of health that impacted care today? How? (Homelessness, low income, unemployed, alcoholism, drug addiction, trans portation, low edu. Level, literacy, decrease access to med. care, intermediate, rehab)? @ -No Was there de-escalation of care discussed even if they declined (Discuss DNR or withdrawal of care, Hospice)? DNR status @ -No What co-morbidities impacted this encounter? (DM, HTN, Smoking, COPD, CAD, Cancer, CVA, ARF, Chemo, Hep., AIDS, mental health diagnosis, sleep apnea, morbid obesity)? @ -None Was patient admitted / discharged? Hospital course, mention meds given and route, prescriptions, significant lab abnormalities, going to OR and other pertinent info. @ -Discharge 58-year-old female presented to the ED with complaints of left third toe pain for the past day. On examination left third toe is erythematous, warm, tenderness to palpation with swelling consistent with abscess formation. Needle aspiration was performed. Serosanguineous fluid was obtained. Culture obtained. Patient reported significant improvement of pain after needle aspiration. Discharged home with prescription for clindamycin. Discussed strict return precautions with patient who verbalized agreement. At discharge vital signs stable afebrile. Undiagnosed new problem with uncertain prognosis? @ -No Drug Therapy requiring intensive monitoring for toxicity (Heparin, Nitro, Insulin, Cardizem)? @ -No Were any procedures done? @ -Yes, needle aspiration Diagnosis/symptom? @ -Abscess, left third toe Acute, or Chronic, or Acute on Chronic? @ -Acute Uncomplicated (without systemic symptoms) or Complicated (systemic symptoms)? @ -Uncomplicated Side effects of treatment? @ -No Exacerbation, Progression, or Severe Exacerbation? @ -No Poses a threat to life or bodily function? How? (Chest pain, [place], [place], pneumonia, PE, COPD, DKA, ARF, appy, cholecystitis, CVA, Diverticulitis, Homicidal, Suicidal, threat to staff... and all critical care pts) @ -No (Doc Sim) Disposition <Mary Baker - Last Filed: 09/07/23 20:54> Is patient prescribed a controlled substance at d/c from ED?: No Time of Disposition: 00:15 <Doc Sim - Last Filed: 09/08/23 00:15> Clinical Impression: Abscess, toe Disposition: HOME SELF-CARE Condition: Good Instructions (If sedation given, give patient instructions): Abscess Incision and Drainage (ED) Additional Instructions: Please return to the Emergency Department if symptoms worsen or any other concerns. Please follow-up with your primary care provider. Prescriptions: Clindamycin [Cleocin] 450 mg PO TID #63 capsule Referrals: Paresh Li MD [Primary Care Provider] - 1-2 days
[2023-09-07 21:00] VITALS: RESP 18
--- NOTE | 2023-09-07 22:17 | XR ---
EXAMINATION TYPE: XR foot complete LT DATE OF EXAM: 09/07/2023 9:06 PM CLINICAL INDICATION:Female, 58 years old with history of Third digit pain; [facility] COMPARISON: None TECHNIQUE: XR foot complete LT examined in the AP, oblique, and lateral projections. FINDINGS: No evidence of any acute osseous pathology. No evidence of soft tissue swelling. Joints are preserve d. IMPRESSION: No evidence of acute fracture.
[2023-09-07] MEDS: LIDOCAINE 1% INJ 10MG/ML (20 ML MDV) SQ ONE (22:34)
[2023-09-07] MEDS: DIPH,PERTUS(ACELL)TETVAC-LF 0.5 ML VIAL IM ONE (22:34)
[2023-09-07 23:38] VITALS: BP 152/85; PULSE 66; TEMP 98.5
[2023-09-08] MEDS: CLINDAMYCIN 150 MG CAP PO STA (00:24)
== END 2023-09-08 00:28 | disposition home or self-care (01) ==
LOC: EC 20:31
DX: L02.216 Cutaneous abscess of umbilicus (principal); I10 Essential (primary) hypertension; J45.909 Unspecified asthma, uncomplicated; F41.9 Anxiety disorder, unspecified; F32.A Depression, unspecified; F17.200 Nicotine dependence, unspecified, uncomplicated; Z79.899 Other long term (current) drug therapy; Z23 Encounter for immunization; Z88.2 Allergy status to sulfonamides; Z88.5 Allergy status to narcotic agent; Z88.0 Allergy status to penicillin; Z88.1 Allergy status to other antibiotic agents
CPT/HCPCS: 73630; 90715; 10060; 99283; 90471; J2001; 87070; 87075; 87205

== ENCOUNTER 2023-09-10 13:55 | Emergency (ER) | payer OTHER ==
[2023-09-10 14:12] VITALS: BP 166/75; PULSE 74; RESP 18; TEMP 97.5
[2023-09-10] MEDS: cefTRIAXone 1,000 MG VIAL (IM USE) IM STA (14:30)
[2023-09-10] MEDS: LIDOCAINE 1% INJ 10MG/ML (20 ML MDV) SQ ONE (14:30)
--- NOTE | 2023-09-10 14:32 | ED ---
General Adult HPI - General Chief complaint: Recheck/Abnormal Lab/Rx Stated complaint: pain in left middle toe Time Seen by Provider: 09/10/23 14:10 Source: patient, RN notes reviewed Mode of arrival: ambulatory Limitations: no limitations - History of Present Illness Initial comments: 58-year-old female presents emergency department with chief complaint of right foot toe pain. Patient was seen in the emergency department on 09/08/2023 with the same complaint. At this time patient underwent needle aspiration of the affected area and was prescribed outpatient clindamycin. Patient has been continuing on antibiotic, but presents today due to worsening pain. Patient adamantly states she does not want to undergo further aspiration of the toe. Denies fevers, lightheadedness, nausea, vomiting, diarrhea. - Related Data Home Medications Medication Instructions Recorded Confirmed Phenytoin Sodium Extended 100 mg PO TID 04/12/14 02/03/23 [Dilantin] atenoloL [Tenormin] 25 mg PO DAILY 04/12/14 02/03/23 Albuterol Sulfate [Proair Hfa] 2 puff INHALATION RT-QID PRN 07/29/15 02/03/23 LORazepam [Ativan] 1 mg PO TID PRN 08/17/18 02/03/23 Meclizine [Antivert] 25 mg PO TID PRN 08/17/18 02/03/23 Omeprazole 40 mg PO DAILY 08/17/18 02/03/23 Cholecalciferol [Vitamin D3 (25 50 mcg PO DAILY 02/03/23 02/03/23 Mcg = 1000 Iu)] Diclofenac Sodium Gel [Voltaren 1 applic TOPICAL QID PRN 02/03/23 02/03/23 Gel] Fluticasone Nasal [place] [Flonase 1 spray EA NOSTRIL DAILY PRN 02/03/23 02/03/23 Nasal [place]] Magnesium Oxide [Magox 400] 400 mg PO DAILY 02/03/23 02/03/23 Previous Rx's Medication Instructions Recorded Clindamycin [Cleocin] 450 mg PO TID #63 capsule 09/08/23 Allergies Allergy/AdvReac Type Severity Reaction Status Date / Time ciprofloxacin [From Cipro] Allergy Rash/Hives Verified 09/10/23 13:59 ciprofloxacin HCl Allergy Rash/Hives Verified 09/10/23 13:59 [From Cipro] Penicillins Allergy Rash/Hives Verified 09/10/23 13:59 Sulfa (Sulfonamide Allergy Rash/Hives Verified 09/10/23 13:59 Antibiotics) hydromorphone HCl AdvReac Confusion Verified 09/10/23 13:59 [From Dilaudid] Review of Systems ROS Statement: Those systems with pertinent positive or pertinent negative responses have been documented in the HPI. ROS Other: All systems not noted in ROS Statement are negative. Past Medical History Past Medical History: Asthma, Hypertension, Seizure Disorder Additional Past Medical History / Comment(s): vertigo. LAST SEIZURE "SEVERAL YEARS AGO"; tendonitis in left elbow History of Any Multi-Drug Resistant Organisms: None Reported Past Surgical History: Breast Surgery, Section, Tubal Ligation Additional Past Surgical History / Comment(s): LEFT BREAST BX /NEG. CYST REMOVED RIGHT BUTTOCKS. D & C Past Anesthesia/Blood Transfusion Reactions: Motion Sickness Past Psychological History: Anxiety, Depression Smoking Status: Current every day smoker Past Alcohol Use History: None Reported Past Drug Use History: None Reported - Past Family History Mother Family Medical History: Hypertension Father History Unknown: Yes General Exam Limitations: no limitations General appearance: alert, in no apparent distress Head exam: Present: atraumatic, normocephalic, normal inspection Eye exam: Present: normal appearance, PERRL, EOMI. Absent: scleral icterus, conjunctival injection, periorbital swelling ENT exam: Present: normal exam, mucous membranes moist Neck exam: Present: normal inspection. Absent: tenderness, meningismus, lymphadenopathy Respiratory exam: Present: normal lung sounds bilaterally. Absent: respiratory distress, wheezes, rales, rhonchi, stridor Cardiovascular Exam: Present: regular rate, normal rhythm, normal heart sounds. Absent: systolic murmur, diastolic murmur, rubs, gallop, clicks GI/Abdominal exam: Present: soft, normal bowel sounds. Absent: distended, tenderness, guarding, rebound, rigid Left Foot/Toe exam: Present: tenderness (distal digit, numbness and erythematous swelling of the distal metatarsal no obvious sign of abscess), swelling, erythema Neurovascular tendon exam: Present: no vascular compromise. Absent: pulse deficit, abnormal cap refill, motor deficit, sensory deficit Back exam: Present: normal inspection Neurological exam: Present: alert, oriented X3, CN II-XII intact Psychiatric exam: Present: normal affect, normal mood Skin exam: Present: warm, dry, intact, normal color. Absent: rash Course Vital Signs 09/10/23 13:57 Temperature 97.5 F L Pulse Rate 74 Respiratory 18 Rate Blood Pressure 166/75 O2 Sat by Pulse 94 L Oximetry Medical Decision Making - Medical Decision Making Was pt. sent in by a medical professional or institution (, GISSELL, DEDICATED DRIVER, urgent care, hospital, or care home...) When possible be specific @ -No Did you speak to anyone other than the patient for history (EMS, parent, family, police, friend...)? What history was obtained from this source @ -No Did you review nursing and triage notes (agree or disagree)? Why? @ -I reviewed and agree with nursing and triage notes Were old charts reviewed (outside hosp., previous admission, EMS record, old EKG, old radiological studies, urgent care reports/EKG's, care home records)? Report findings @ -No old charts were reviewed Differential Diagnosis (chest pain, altered mental status, abdominal pain women, abdominal pain men, vaginal bleeding, weakness, fever, dyspnea, syncope, headache, dizziness, GI bleed, back pain, seizure, CVA, palpatations, mental health, musculoskeletal)? @ -differential: Abscess, cellulitis EKG interpreted by me (3pts min.). @ -None X-rays interpreted by me (1pt min.). @ -None done CT interpreted by me (1pt min.). @ -None done U/S interpreted by me (1pt. min.). @ -None done What testing was considered but not performed or refused? (CT, X-rays, U/S, labs)? Why? @ -None What meds were considered but not given or refused? Why? @ -None Did you discuss the management of the patient with other professionals (professionals i.e. GISSELL Teague, DEDICATED DRIVER, lab, RT, psych nurse, dialysis social worker, green chain operator, teacher, fare enforcement officer, major case detective)? Give summary @ -No Was smoking cessation discussed for >3mins.? @ -No Was critical care preformed (if so, how long)? @ -No Were there social determinants of health that impacted care today? How? (Homelessness, low income, unemployed, alcoholism, drug addiction, transportation, low edu. Level, literacy, decrease access to med. care, snf, rehab)? @ -No Was there de-escalation of care discussed even if they declined (Discuss DNR or withdrawal of care, Hospice)? DNR status @ -No What co-morbidities impacted this encounter? (DM, HTN, Smoking, COPD, CAD, Cancer, CVA, ARF, Chemo, Hep., AIDS, mental health diagnosis, sleep apnea, morbid obesity)? @ -Smoking Was patient admitted / discharged? Hospital course, mention meds given and route, prescriptions, significant lab abnormalities, going to OR and other pertinent info. @ -Discharged. 58-year-old female with chief complaint of left toe pain and swelling. Discussed with patient multiple options due to infection. Patient adamantly declines further aspiration of toe or any insertion of needles to the affected area. Patient received 1 g of IM Rocephin for further antibiotic coverage. Patient has follow-up appointment on Tuesday with primary care physician for further evaluation of infection. She is stable for discharge due to not showing signs of systemic infection such as fevers, chills, nausea, vomiting, diarrhea. Undiagnosed new problem with uncertain prognosis? @ -No Drug Therapy requiring intensive monitoring for toxicity (Heparin, Nitro, Insulin, Cardizem)? @ -No Were any procedures done? @ -No Diagnosis/symptom? @ -Toe abscess Acute, or Chronic, or Acute on Chronic? @ -acute Uncomplicated (without systemic symptoms) or Complicated (systemic symptoms)? @ -Uncomplicated Side effects of treatment? @ -No Exacerbation, Progression, or Severe Exacerbation? @ -No Poses a threat to life or bodily function? How? (Chest pain, [place], [place], pneumonia, PE, COPD, DKA, ARF, appy, cholecystitis, CVA, Diverticulitis, Homicidal, Suicidal, threat to staff... and all critical care pts) @ -No Disposition Clinical Impression: Encounter for wound re-check, Abscess of toe Disposition: HOME SELF-CARE Condition: Good Instructions (If sedation given, give patient instructions): Abscess (ED) Is patient prescribed a controlled substance at d/c from ED?: No Referrals: Paresh Li MD [Primary Care Provider] - 1-2 days Time of Disposition: 14:33
== END 2023-09-10 14:45 | disposition home or self-care (01) ==
LOC: EC 13:55
DX: L02.612 Cutaneous abscess of left foot (principal); I10 Essential (primary) hypertension; J45.909 Unspecified asthma, uncomplicated; F41.9 Anxiety disorder, unspecified; F32.A Depression, unspecified; F17.200 Nicotine dependence, unspecified, uncomplicated; Z79.899 Other long term (current) drug therapy; Z88.0 Allergy status to penicillin; Z88.2 Allergy status to sulfonamides; Z88.5 Allergy status to narcotic agent; Z88.8 Allergy status to other drugs, medicaments and biological substances
CPT/HCPCS: 99283; 96372; J2001; J0696

== ENCOUNTER 2023-11-30 09:40 | Emergency (ER) | payer OTHER ==
--- NOTE | 2023-11-30 09:54 | ED ---
General Adult HPI - General Source: patient, RN notes reviewed Mode of arrival: ambulatory Limitations: no limitations <Yvrose Patiño - Last Filed: 11/30/23 09:49> <Edith Douglas - Last Filed: 11/30/23 13:42> - General Chief complaint: Recheck/Abnormal Lab/Rx Stated complaint: R upper side pain Time Seen by Provider: 11/30/23 09:49 - History of Present Illness Initial comments: Quick Note: This is a 58 year old female who presents to the emergency department for pain over the right upper rib cage. States that it started last night when she was laying in bed after coughing and believes that she may have pulled a muscle. States that the cough is chronic. Denies any shortness of breath. (Yvrose Patiño) 58-year-old female presenting to the ER with chief complaint of right upper rib cage pain x 1 day. States she has had a cough for 3 days that is productive and constant. States she was laying in bed last night coughing and believes she pulled a muscle. Admits pain with movement. She smokes a pack of cigarettes daily. Denies chest pain or shortness of breath. (Edith Douglas) - Related Data Home Medications Medication Instructions Recorded Confirmed Phenytoin Sodium Extended 100 mg PO TID 04/12/14 02/03/23 [Dilantin] atenoloL [Tenormin] 25 mg PO DAILY 04/12/14 02/03/23 Albuterol Sulfate [Proair Hfa] 2 puff INHALATION RT-QID PRN 07/29/15 02/03/23 LORazepam [Ativan] 1 mg PO TID PRN 08/17/18 02/03/23 Meclizine [Antivert] 25 mg PO TID PRN 08/17/18 02/03/23 Omeprazole 40 mg PO DAILY 08/17/18 02/03/23 Cholecalciferol [Vitamin D3 (25 50 mcg PO DAILY 02/03/23 02/03/23 Mcg = 1000 Iu)] Diclofenac Sodium Gel [Voltaren 1 applic TOPICAL QID PRN 02/03/23 02/03/23 Gel] Fluticasone Nasal [place] [Flonase 1 spray EA NOSTRIL DAILY PRN 02/03/23 02/03/23 Nasal [place]] Magnesium Oxide [Magox 400] 400 mg PO DAILY 02/03/23 02/03/23 Previous Rx's Medication Instructions Recorded Clindamycin [Cleocin] 450 mg PO TID #63 capsule 09/08/23 Doxycycline [Vibramycin] 100 mg PO BID 7 Days #14 capsule 11/30/23 methocarbamoL [Robaxin] 500 mg PO TID PRN #15 tab 11/30/23 Allergies Allergy/AdvReac Type Severity Reaction Status Date / Time ciprofloxacin [From Cipro] Allergy Rash/Hives Verified 11/30/23 10:08 ciprofloxacin HCl Allergy Rash/Hives Verified 11/30/23 10:08 [From Cipro] Penicillins Allergy Rash/Hives Verified 11/30/23 10:08 Sulfa (Sulfonamide Allergy Rash/Hives Verified 11/30/23 10:08 Antibiotics) hydromorphone HCl AdvReac Confusion Verified 11/30/23 10:08 [From Dilaudid] Review of Systems ROS Other: All systems not noted in ROS Statement are negative. <Yvrose Patiño - Last Filed: 11/30/23 09:49> ROS Other: All systems not noted in ROS Statement are negative. <Edith Douglas - Last Filed: 11/30/23 13:42> ROS Statement: Those systems with pertinent positive or pertinent negative responses have been documented in the HPI. Past Medical History Past Medical History: Asthma, Hypertension, Seizure Disorder Additional Past Medical History / Comment(s): vertigo. LAST SEIZURE "SEVERAL YEARS AGO"; tendonitis in left elbow History of Any Multi-Drug Resistant Organisms: None Reported Past Surgical History: Breast Surgery, Section, Tubal Ligation Additional Past Surgical History / Comment(s): LEFT BREAST BX /NEG. CYST REMOVED RIGHT BUTTOCKS. D & C Past Anesthesia/Blood Transfusion Reactions: Motion Sickness Past Psychological History: Anxiety, Depression Smoking Status: Current every day smoker Past Alcohol Use History: None Reported Past Drug Use History: None Reported - Past Family History Mother Family Medical History: Hypertension Father History Unknown: Yes <Yvrose Patiño - Last Filed: 11/30/23 09:49> General Exam <Yvrose Patiño - Last Filed: 11/30/23 09:49> General appearance: alert, in no apparent distress Head exam: Present: atraumatic, normocephalic, normal inspection Eye exam: Present: normal appearance, PERRL, EOMI. Absent: scleral icterus, conjunctival injection, periorbital swelling ENT exam: Present: normal exam, mucous membranes moist Neck exam: Present: normal inspection. Absent: tenderness, meningismus, lymphadenopathy Respiratory exam: Present: normal lung sounds bilaterally. Absent: respiratory distress, wheezes, rales, rhonchi, stridor Cardiovascular Exam: Present: regular rate, normal rhythm, normal heart sounds. Absent: systolic murmur, diastolic murmur, rubs, gallop, clicks GI/Abdominal exam: Present: soft, normal bowel sounds. Absent: distended, tenderness, guarding, rebound, rigid Extremities exam: Present: normal inspection, full ROM, normal capillary refill. Absent: tenderness, pedal edema, joint swelling, calf tenderness Neurological exam: Present: alert, oriented X3, CN II-XII intact Psychiatric exam: Present: normal affect, normal mood Skin exam: Present: warm, dry, intact, normal color. Absent: rash <Edith Douglas - Last Filed: 11/30/23 13:42> - General Exam Comments Initial Comments: Visual Physical Exam Vital signs reviewed General: Well-appearing, nontoxic, no acute distress. Head: Normocephalic, atraumatic Eyes: PERRLA, EOMI ENT: Airway patent Chest: Nonlabored breathing Skin: No visual rash, normal skin tone Neuro: Alert and oriented 3 Musculoskeletal: No gross abnormalities (Yvrose Patiño) Course Vital Signs 11/30/23 11/30/23 10:04 13:31 Temperature 98.4 F 98.4 F Pulse Rate 63 65 Respiratory 20 18 Rate Blood Pressure 172/91 161/89 O2 Sat by Pulse 90 L 95 Oximetry Medical Decision Making <Yvrose Patiño - Last Filed: 11/30/23 09:49> <Edith Douglas - Last Filed: 11/30/23 13:42> - Medical Decision Making I performed the QuickNote portion of this chart. Signed Yvrose Patiño PA-C. (Yvrose Patiño) Was pt. sent in by a medical professional or institution (GISSELL Teague, COMPUTER PROGRAMMER ANALYST, urgent care, hospital, or alf...) When possible be specific @ -No Did you speak to anyone other than the patient for history (EMS, parent, family, police, friend...)? What history was obtained from this source @ -No Did you review nursing and triage notes (agree or disagree)? Why? @ -I reviewed and agree with nursing and triage notes Were old charts reviewed (outside hosp., previous admission, EMS record, old EKG, old radiological studies, urgent care reports/EKG's, alf records)? Report findings @ -No old charts were reviewed Differential Diagnosis (chest pain, altered mental status, abdominal pain women, abdominal pain men, vaginal bleeding, weakness, fever, dyspnea, syncope, headache, dizziness, GI bleed, back pain, seizure, CVA, palpatations, mental health, musculoskeletal)? @ -Differential Musculoskeletal Muscular strain, contusion, ligament sprain, fracture, arthritis, septic arthritis, bursitis, cellulitis, muscle spasm, nerve compression, DVT, arterial occlusion, herpes zoster, electrolyte abnormality, tumor, viral URI, pneumonia, COPD.... This is not meant to be in all inclusive list EKG interpreted by me (3pts min.). @ -None X-rays interpreted by me (1pt min.). @ -Chest x-ray reveals possible underlying COPD with some patchy right basilar atelectasis versus early infiltrate, minimally displaced right rib fracture CT interpreted by me (1pt min.). @ -None done U/S interpreted by me (1pt. min.). @ -None done What testing was considered but not performed or refused? (CT, X-rays, U/S, labs)? Why? @ -None What meds were considered but not given or refused? Why? @ -None Did you discuss the management of the patient with other professionals (professionals i.e. , PA, COMPUTER PROGRAMMER ANALYST, lab, RT, psych nurse, social worker clinical, home economist consumer service, teacher, aoc director combat operations officer, case loader operator)? Give summary @ -No Was smoking cessation discussed for >3mins.? @ -Yes Was critical care preformed (if so, how long)? @ -No Were there social determinants of health that impacted care today? How? (Homelessness, low income, unemployed, alcoholism, drug addiction, transportation, low edu. Level, literacy, decrease access to med. care, skilled nursing, rehab)? @ -No Was there de-escalation of care discussed even if they declined (Discuss DNR or withdrawal of care, Hospice)? DNR status @ -No What co-morbidities impacted this encounter? (DM, HTN, Smoking, COPD, CAD, Cancer, CVA, ARF, Chemo, Hep., AIDS, mental health diagnosis, sleep apnea, morbid obesity)? @ -COPD, smoking Was patient admitted / discharged? Hospital course, mention meds given and route, prescriptions, significant lab abnormalities, going to OR and other pertinent info. @ -Patient was discharged. Patient was seen and evaluated for right rib pain x 1 day with cough. No alarm symptoms. Denies chest pain, shortness of breath, or fever. No signs significant for oxygen of 90% however patient denies any symptoms. Likely chronic due to underlying COPD. Chest x-ray reveals possible underlying COPD with some patchy medial right basilar atelectasis versus early infiltrate, nondisplaced right rib fracture. Chest with patient diagnosis of right rib strain and early developing pneumonia. Discussed due to risk factors and symptoms, and is reasonable at this time to treat with antibiotics. Prescribed doxycycline and Robaxin. Strict return/alarm symptoms discussed with patient in detail and she shows understanding and agrees with plan. Case discussed with my attending Dr. Weaver. Patient discharged in stable condition Undiagnosed new problem with uncertain prognosis? @ -No Drug Therapy requiring intensive monitoring for toxicity (Heparin, Nitro, Insulin, Cardizem)? @ -No Were any procedures done? @ -No Diagnosis/symptom? @ -Right rib strain, early pneumonia Acute, or Chronic, or Acute on Chronic? @ -Acute Uncomplicated (without systemic symptoms) or Complicated (systemic symptoms)? @ -Uncomplicated Side effects of treatment? @ -No Exacerbation, Progression, or Severe Exacerbation? @ -No Poses a threat to life or bodily function? How? (Chest pain, [place], [place], pneumonia, PE, COPD, DKA, ARF, appy, cholecystitis, CVA, Diverticulitis, Homicidal, Suicidal, threat to staff... and all critical care pts) @ -Low likelihood (Edith Douglas) Disposition <Yvrose Patiño - Last Filed: 11/30/23 09:49> Is patient prescribed a controlled substance at d/c from ED?: No Time of Disposition: 13:24 <Edith Douglas - Last Filed: 11/30/23 13:42> Clinical Impression: Pneumonia, Muscle strain of anterior chest wall Disposition: HOME SELF-CARE Condition: Stable Instructions (If sedation given, give patient instructions): Pneumonia (ED) Additional Instructions: Please take antibiotic and muscle relaxer as directed. Please return to the Emergency Department if symptoms worsen or any other concerns. Prescriptions: methocarbamoL [Robaxin] 500 mg PO TID PRN #15 tab PRN Reason: muscle spasms Doxycycline [Vibramycin] 100 mg PO BID 7 Days #14 capsule Referrals: Paresh Li MD [Primary Care Provider] - 1-2 days
[2023-11-30 10:08] VITALS: TEMP 98.4
--- NOTE | 2023-11-30 10:57 | XR ---
EXAMINATION TYPE: XR ribs RT w pa chest xray, 5 views DATE OF EXAM: 11/30/2023 COMPARISON: 02/03/2023 HISTORY: 58-year-old female right-sided rib, chest pain FINDINGS: Heart normal size. Aorta and pulmonary vasculature within normal limits. Mild hyperinflation. Some pa tchy medial right basilar opacity is noted. No pleural effusion or pneumothorax. No displaced right r ib fracture seen. IMPRESSION: Possible underlying COPD. There is some patchy medial right basilar atelectasis versus early infiltra te. Correlate with symptoms. No displaced right rib fracture seen.
[2023-11-30 13:33] VITALS: BP 161/89; PULSE 65; RESP 18
== END 2023-11-30 13:33 | disposition home or self-care (01) ==
LOC: EC 09:40
DX: S29.011A Strain of muscle and tendon of front wall of thorax, initial encounter (principal); J18.9 Pneumonia, unspecified organism; F17.200 Nicotine dependence, unspecified, uncomplicated; Z88.1 Allergy status to other antibiotic agents; Z88.0 Allergy status to penicillin; Z88.2 Allergy status to sulfonamides; Z88.5 Allergy status to narcotic agent; X58.XXXA Exposure to other specified factors, initial encounter
CPT/HCPCS: 99283

== ENCOUNTER 2024-02-27 07:52 | Emergency (ER) | payer OTHER ==
[2024-02-27 08:00] VITALS: RESP 18
[2024-02-27] MEDS: IBUPROFEN 600 MG TAB PO STA (08:11)
--- NOTE | 2024-02-27 08:13 | ED ---
Lower Extremity Injury HPI - General Chief Complaint: Extremity Injury, Lower Stated Complaint: R foot pain Time Seen by Provider: 02/27/24 08:08 Source: patient, RN notes reviewed Mode of arrival: ambulatory Limitations: no limitations - History of Present Illness Initial Comments: 58-year-old female presented to the ER with a chief complaint of right foot pain. Patient states for approximately 1 week she has been endorsing a sharp pain to her distal first metatarsal. She located it just proximal to head of 1st metatarsal. She states it is worse in the morning and with occasional pressure like walking. She reports it is tender to touch and describes it as "stepping on a lego". She denies any paresthesias, calf pain, tenderness, known injuries. She has not taken anything for pain at this time. Denies any weakness. No other complaints. - Related Data Home Medications Medication Instructions Recorded Confirmed Phenytoin Sodium Extended 100 mg PO TID 04/12/14 02/03/23 [Dilantin] atenoloL [Tenormin] 25 mg PO DAILY 04/12/14 02/03/23 Albuterol Sulfate [Proair Hfa] 2 puff INHALATION RT-QID PRN 07/29/15 02/03/23 LORazepam [Ativan] 1 mg PO TID PRN 08/17/18 02/03/23 Meclizine [Antivert] 25 mg PO TID PRN 08/17/18 02/03/23 Omeprazole 40 mg PO DAILY 08/17/18 02/03/23 Cholecalciferol [Vitamin D3 (25 50 mcg PO DAILY 02/03/23 02/03/23 Mcg = 1000 Iu)] Diclofenac Sodium Gel [Voltaren 1 applic TOPICAL QID PRN 02/03/23 02/03/23 Gel] Fluticasone Nasal [place] [Flonase 1 spray EA NOSTRIL DAILY PRN 02/03/23 02/03/23 Nasal [place]] Magnesium Oxide [Magox 400] 400 mg PO DAILY 02/03/23 02/03/23 Previous Rx's Medication Instructions Recorded Clindamycin [Cleocin] 450 mg PO TID #63 capsule 09/08/23 Doxycycline [Vibramycin] 100 mg PO BID 7 Days #14 capsule 11/30/23 methocarbamoL [Robaxin] 500 mg PO TID PRN #15 tab 11/30/23 Allergies Allergy/AdvReac Type Severity Reaction Status Date / Time ciprofloxacin [From Cipro] Allergy Rash/Hives Verified 02/27/24 08:00 ciprofloxacin HCl Allergy Rash/Hives Verified 02/27/24 08:00 [From Cipro] Penicillins Allergy Rash/Hives Verified 02/27/24 08:00 Sulfa (Sulfonamide Allergy Rash/Hives Verified 02/27/24 08:00 Antibiotics) hydromorphone HCl AdvReac Confusion Verified 02/27/24 08:00 [From Dilaudid] Review of Systems ROS Statement: Those systems with pertinent positive or pertinent negative responses have been documented in the HPI. ROS Other: All systems not noted in ROS Statement are negative. Past Medical History Past Medical History: Asthma, Hypertension, Seizure Disorder Additional Past Medical History / Comment(s): vertigo. LAST SEIZURE "SEVERAL YEARS AGO"; tendonitis in left elbow History of Any Multi-Drug Resistant Organisms: None Reported Past Surgical History: Breast Surgery, Section, Tubal Ligation Additional Past Surgical History / Comment(s): LEFT BREAST BX /NEG. CYST REMOVED RIGHT BUTTOCKS. D & C Past Anesthesia/Blood Transfusion Reactions: Motion Sickness Past Psychological History: Anxiety, Depression Smoking Status: Current every day smoker Past Alcohol Use History: None Reported Past Drug Use History: None Reported - Past Family History Mother Family Medical History: Hypertension Father History Unknown: Yes General Exam Limitations: no limitations General appearance: alert, in no apparent distress Respiratory exam: Present: normal lung sounds bilaterally. Absent: respiratory distress, wheezes, rales, rhonchi, stridor Cardiovascular Exam: Present: regular rate, normal rhythm, normal heart sounds. Absent: systolic murmur, diastolic murmur, rubs, gallop, clicks Extremities exam: Present: normal inspection, full ROM, tenderness (right head 1st metatarsal. 2+ right dorsalis pedis pulse. 5+ strength foot and ankle. No overlying skin changes. Sensation intact.), normal capillary refill. Absent: pedal edema, joint swelling, calf tenderness Neurological exam: Present: alert, oriented X3, CN II-XII intact Skin exam: Present: warm, dry, intact, normal color. Absent: rash Course Vital Signs 02/27/24 02/27/24 07:57 08:48 Temperature 98.0 F 97.9 F Pulse Rate 63 70 Respiratory 18 18 Rate Blood Pressure 181/80 168/76 O2 Sat by Pulse 94 L 97 Oximetry Medical Decision Making - Medical Decision Making Was pt. sent in by a medical professional or institution (, PA, KILN TESTER, urgent care, hospital, or fdc...) When possible be specific @ -No Did you speak to anyone other than the patient for history (EMS, parent, family, police, friend...)? What history was obtained from this source @ -No Did you review nursing and triage notes (agree or disagree)? Why? @ -I reviewed and agree with nursing and triage notes Were old charts reviewed (outside hosp., previous admission, EMS record, old EKG, old radiological studies, urgent care reports/EKG's, fdc records)? Report findings @ -No old charts were reviewed Differential Diagnosis (chest pain, altered mental status, abdominal pain women, abdominal pain men, vaginal bleeding, weakness, fever, dyspnea, syncope, headache, dizziness, GI bleed, back pain, seizure, CVA, palpatations, mental health, musculoskeletal)? @ -Differential Musculoskeletal:Muscular strain, contusion, ligament sprain, fracture, arthritis, septic arthritis, bursitis, cellulitis, muscle spasm, nerve compression, DVT, arterial occlusion, herpes zoster, electrolyte abnormality, tumor.... This is not meant to be in all inclusive list EKG interpreted by me (3pts min.). @ -None done X-rays interpreted by me (1pt min.). @ -None done CT interpreted by me (1pt min.). @ -None done U/S interpreted by me (1pt. min.). @ -None done What testing was considered but not performed or refused? (CT, X-rays, U/S, labs)? Why? @ -None What meds were considered but not given or refused? Why? @ -Patient refused ibuprofen. Did you discuss the management of the patient with other professionals (professionals i.e. , GISSELL, KILN TESTER, lab, RT, psych nurse, social group worker, tearoom hostess, teacher, defence force senior officer, case checker)? Give summary @ -No Was smoking cessation discussed for >3mins.? @ -No Was critical care preformed (if so, how long)? @ -No Were there social determinants of health that impacted care today? How? (Homelessness, low income, unemployed, alcoholism, drug addiction, transportation, low edu. Level, literacy, decrease access to med. care, halfway, rehab)? @ -No Was there de-escalation of care discussed even if they declined (Discuss DNR or withdrawal of care, Hospice)? DNR status @ -No What co-morbidities impacted this encounter? (DM, HTN, Smoking, COPD, CAD, Cancer, CVA, ARF, Chemo, Hep., AIDS, mental health diagnosis, sleep apnea, morbid obesity)? @ -None Was patient admitted / discharged? Hospital course, mention meds given and route, prescriptions, significant lab abnormalities, going to OR and other pertinent info. @ -Discharge. 58-year-old female presented to the ER with a chief complaint of left foot pain. History and physical exam completed. Vitals within normal limits. Patient no signs of distress. Left lower extremity neurovascular intact. No overlying skin changes. Tenderness to palpation of first distal metatarsal. Full active range of motion. X-rays obtained negative for acute process. Patient refused ibuprofen. Patient reevaluated and updated on x-ray results. Conservative treatment options discussed. Advise close follow-up with PCP. Patient verbally expressed understanding agree with care plan. Case discussed with ED attending, Dr. Blanco. Undiagnosed new problem with uncertain prognosis? @ -No Drug Therapy requiring intensive monitoring for toxicity (Heparin, Nitro, Insulin, Cardizem)? @ -No Were any procedures done? @ -No Diagnosis/symptom? @ -Foot pain Acute, or Chronic, or Acute on Chronic? @ -Acute Uncomplicated (without systemic symptoms) or Complicated (systemic symptoms)? @ -Uncomplicated Side effects of treatment? @ -No Exacerbation, Progression, or Severe Exacerbation? @ -No Poses a threat to life or bodily function? How? (Chest pain, [place], [place], pneumonia, PE, COPD, DKA, ARF, appy, cholecystitis, CVA, Diverticulitis, Homicidal, Suicidal, threat to staff... and all critical care pts) @ -No - Radiology Data Radiology results: report reviewed, image reviewed Disposition Clinical Impression: Foot pain Disposition: HOME SELF-CARE Condition: Stable Additional Instructions: I recommend [id number] ibuprofen and anti-inflammatories, rest ice and compression. Follow-up with PCP. Return to the ER for any new or worsening concerns. Is patient prescribed a controlled substance at d/c from ED?: No Referrals: Paresh Li MD [Primary Care Provider] - 1-2 days Time of Disposition: 08:50
--- NOTE | 2024-02-27 08:37 | XR ---
Right foot HISTORY: First metatarsal pain. COMPARISON: 03/06/2022. TECHNIQUE: 3 views of the right foot were obtained. FINDINGS: There is no fracture, dislocation, intraosseous, intra-articular soft tissue abnormality. IMPRESSION: No significant abnormality seen.
[2024-02-27 08:49] VITALS: BP 168/76; PULSE 70; TEMP 97.9
== END 2024-02-27 08:48 | disposition home or self-care (01) ==
LOC: EC 07:52
CPT/HCPCS: 99283

== ENCOUNTER → 2024-03-16 | Outpatient (CLI) | payer OTHER ==
--- NOTE | 2024-03-16 12:30 | XR ---
EXAMINATION TYPE: XR chest 2V DATE OF EXAM: 03/16/2024 COMPARISON: 11/30/2023 INDICATION: Cough TECHNIQUE: Frontal and lateral views of the chest are obtained. FINDINGS: The heart size is normal. The pulmonary vasculature is normal. Some chronic tenting of the left diaphragm may be present. Correlate for scarring.. No suspicious in filtrates. IMPRESSION: 1. No acute pulmonary process. [facility], , 03/16/2024 12:28 PM
== END | disposition home or self-care (01) ==
LOC: RADXRMAIN 11:43
PROVIDERS: ATTEND Internal Medicine
DX: R05.9 Cough, unspecified (principal)
CPT/HCPCS: 71046

== ENCOUNTER 2024-04-10 08:35 | Emergency (ER) | payer OTHER ==
--- NOTE | 2024-04-10 08:58 | ED ---
Head Injury HPI - General Chief complaint: Head Injury Stated complaint: Fall/Head/R Foot Time Seen by Provider: 04/10/24 08:39 Source: patient, RN notes reviewed Mode of arrival: ambulatory Limitations: no limitations - History of Present Illness Initial comments: 58-year-old female presents emergency department with chief complaint of fall, head trauma, foot pain. Patient states that she caught her shoe on hardwood steps states she fell down multiple steps she states that she may have lost consciousness but she believes that she did not. Patient denies any blood thinners. She does complain of facial pain, right foot right tib-fib pain states there is multiple swelling areas. Patient denies any back pain no other complaints. - Related Data Home Medications Medication Instructions Recorded Confirmed Phenytoin Sodium Extended 100 mg PO TID 04/12/14 02/03/23 [Dilantin] atenoloL [Tenormin] 25 mg PO DAILY 04/12/14 02/03/23 Albuterol Sulfate [Proair Hfa] 2 puff INHALATION RT-QID PRN 07/29/15 02/03/23 LORazepam [Ativan] 1 mg PO TID PRN 08/17/18 02/03/23 Meclizine [Antivert] 25 mg PO TID PRN 08/17/18 02/03/23 Omeprazole 40 mg PO DAILY 08/17/18 02/03/23 Cholecalciferol [Vitamin D3 (25 50 mcg PO DAILY 02/03/23 02/03/23 Mcg = 1000 Iu)] Diclofenac Sodium Gel [Voltaren 1 applic TOPICAL QID PRN 02/03/23 02/03/23 Gel] Fluticasone Nasal [place] [Flonase 1 spray EA NOSTRIL DAILY PRN 02/03/23 02/03/23 Nasal [place]] Magnesium Oxide [Magox 400] 400 mg PO DAILY 02/03/23 02/03/23 Previous Rx's Medication Instructions Recorded Clindamycin [Cleocin] 450 mg PO TID #63 capsule 09/08/23 Doxycycline [Vibramycin] 100 mg PO BID 7 Days #14 capsule 11/30/23 methocarbamoL [Robaxin] 500 mg PO TID PRN #15 tab 11/30/23 Allergies/Adverse reactions: Allergies Allergy/AdvReac Type Severity Reaction Status Date / Time ciprofloxacin [From Cipro] Allergy Rash/Hives Verified 04/10/24 08:38 ciprofloxacin HCl Allergy Rash/Hives Verified 04/10/24 08:38 [From Cipro] Penicillins Allergy Rash/Hives Verified 04/10/24 08:38 Sulfa (Sulfonamide Allergy Rash/Hives Verified 04/10/24 08:38 Antibiotics) hydromorphone HCl AdvReac Confusion Verified 04/10/24 08:38 [From Dilaudid] Review of Systems ROS Statement: Those systems with pertinent positive or pertinent negative responses have been documented in the HPI. ROS Other: All systems not noted in ROS Statement are negative. Past Medical History Past Medical History: Asthma, Hypertension, Seizure Disorder Additional Past Medical History / Comment(s): vertigo. LAST SEIZURE "SEVERAL YEARS AGO"; tendonitis in left elbow History of Any Multi-Drug Resistant Organisms: None Reported Past Surgical History: Breast Surgery, Section, Tubal Ligation Additional Past Surgical History / Comment(s): LEFT BREAST BX /NEG. CYST PIO GRACIA RIGHT BUTTOCKS. D & C Past Anesthesia/Blood Transfusion Reactions: Motion Sickness Past Psychological History: Anxiety, Depression Smoking Status: Current every day smoker Past Alcohol Use History: None Reported Past Drug Use History: None Reported - Past Family History Mother Family Medical History: Hypertension Father History Unknown: Yes General Exam Limitations: no limitations General appearance: alert, in no apparent distress Head exam: Present: atraumatic, normocephalic, normal inspection Eye exam: Present: normal appearance, PERRL, EOMI, periorbital swelling, periorbital tenderness (Left abrasion noted). Absent: scleral icterus, conjunctival injection ENT exam: Present: normal exam, normal oropharynx, mucous membranes moist Neck exam: Present: normal inspection, full ROM. Absent: tenderness, meningi smus, lymphadenopathy Respiratory exam: Present: normal lung sounds bilaterally. Absent: respiratory distress, wheezes, rales, rhonchi, stridor Cardiovascular Exam: Present: regular rate, normal rhythm, normal heart sounds. Absent: systolic murmur, diastolic murmur, rubs, gallop, clicks Extremities exam: Present: other (Tib-fib there is sense of distal swelling, right foot tenderness over the first digit and just proximal to that with ecchymosis noted) Neurological exam: Present: alert, oriented X3, CN II-XII intact Skin exam: Present: warm, dry, intact, normal color. Absent: rash Course Vital Signs 04/10/24 04/10/24 08:36 11:02 Temperature 97.9 F 98 F Pulse Rate 68 76 Respiratory 20 16 Rate Blood Pressure 166/69 150/62 O2 Sat by Pulse 92 L 94 L Oximetry Medical Decision Making - Medical Decision Making Was pt. sent in by a medical professional or institution (, PA, RELOCATION COORDINATOR, urgent care, hospital, or alf...) When possible be specific @ -No Did you speak to anyone other than the patient for history (EMS, parent, family, police, friend...)? What history was obtained from this source @ -No Did you review nursing and triage notes (agree or disagree)? Why? @ -I reviewed and agree with nursing and triage notes Were old charts reviewed (outside hosp., previous admission, EMS record, old EKG, old radiological studies, urgent care reports/EKG's, alf records)? Report findings @ -No old charts were reviewed Differential Diagnosis (chest pain, altered mental status, abdominal pain women, abdominal pain men, vaginal bleeding, weakness, fever, dyspnea, syncope, headache, dizziness, GI bleed, back pain, seizure, CVA, palpatations, mental health, musculoskeletal)? @ -Fall, intra cranial hemorrhage, facial fracture, cervical fracture, foot fracture EKG interpreted by me (3pts min.). @ -None X-rays interpreted by me (1pt min.). @ -X-ray right tib-fib shows no acute fracture soft tissue swelling noted X-ray right foot no acute fracture CT interpreted by me (1pt min.). @ -CT brain, C-spine showing no acute intracranial hemorrhage, mass effect or obvious fracture CT facial bones no acute fracture soft tissue swelling noted U/S interpreted by me (1pt. min.). @ -None done What testing was considered but not performed or refused? (CT, X-rays, U/S, labs)? Why? @ -None What meds were considered but not given or refused? Why? @ -None Did you discuss the management of the patient with other professionals (professionals i.e. , GISSELL, RELOCATION COORDINATOR, lab, RT, psych nurse, geriatric social work professor, child and adolescent psychiatrist, teacher, humane officer, casework supervisor)? Give summary @ -No Was smoking cessation discussed for >3mins.? @ -No Was critical care preformed (if so, how long)? @ -No Were there social determinants of health that impacted care today? How? (Homelessness, low income, unemployed, alcoholism, drug addiction, transportation, low edu. Level, literacy, decrease access to med. care, shelter, rehab)? @ -No Was there de-escalation of care discussed even if they declined (Discuss DNR or withdrawal of care, Hospice)? DNR status @ -No What co-morbidities impacted this encounter? (DM, HTN, Smoking, COPD, CAD, Cancer, CVA, ARF, Chemo, Hep., AIDS, mental health diagnosis, sleep apnea, morbid obesity)? @ -None Was patient admitted / discharged? Hospital course, mention meds given and route, prescriptions, significant lab abnormalities, going to OR and other pertinent info. @ -Discharged patient presented for significant fall, down multiple steps with increasing headache. Patient did have CT brain, C-spine and facial bones given severe mechanism of injury and temporal injury with slight confusion. Patient's imaging was negative including x-rays and CT. Patient discharged in stable condition Undiagnosed new problem with uncertain prognosis? @ -No Drug Therapy requiring intensive monitoring for toxicity (Heparin, Nitro, Insulin, Cardizem)? @ -No Were any procedures done? @ -No Diagnosis/symptom? @ -Fall, facial contusion, head injury, foot contusion Acute, or Chronic, or Acute on Chronic? @ -Acute Uncomplicated (without systemic symptoms) or Complicated (systemic symptoms)? @ -[Uncomplicated Side effects of treatment? @ -No Exacerbation, Progression, or Severe Exacerbation? @ -No Poses a threat to life or bodily function? How? (Chest pain, [place], [place], pneumonia, PE, COPD, DKA, ARF, appy, cholecystitis, CVA, Diverticulitis, Homicidal, Suicidal, threat to staff... and all critical care pts) @ -No Disposition Clinical Impression: Fall, Facial hematoma, Toe contusion, Head injury Disposition: HOME SELF-CARE Condition: Stable Instructions (If sedation given, give patient instructions): Head Injury (ED) Additional Instructions: Please return to the Emergency Department if symptoms worsen or any other concerns. Is patient prescribed a controlled substance at d/c from ED?: No Referrals: Paresh Li MD [Primary Care Provider] - 1-2 days Time of Disposition: 10:00
--- NOTE | 2024-04-10 09:13 | XR ---
EXAMINATION TYPE: XR foot complete RT DATE OF EXAM: 04/10/2024 9:05 AM CLINICAL INDICATION: Female, 58 years old with history of pain; [facility] COMPARISON: 02/27/2024 TECHNIQUE: XR foot complete RT examined in the AP, oblique, and lateral projections. FINDINGS: No evidence of any acute osseous pathology. IMPRESSION: No evidence of acute fracture. Multifocal degeneration changes throughout the joints of the foot. [facility], , 04/10/2024 9:11 AM
--- NOTE | 2024-04-10 09:24 | XR ---
EXAMINATION TYPE: XR tibia fibula RT DATE OF EXAM: 04/10/2024 9:07 AM CLINICAL INDICATION: Female, 58 years old with history of pain; COMPARISON: None. TECHNIQUE: XR tibia fibula RT; examined in AP and lateral projections. FINDINGS: No evidence of any acute osseous pathology, joint dislocation, or soft tissue swelling is n oted. IMPRESSION: No evidence of acute fracture. [facility], , 04/10/2024 9:22 AM
--- NOTE | 2024-04-10 09:51 | CT ---
EXAMINATION TYPE: CT brain cspine wo con, CT facial bones wo con CT DLP: 1137.3 mGycm, Automated exposure control for dose reduction was used. DATE OF EXAM: 04/10/2024 9:25 AM COMPARISON: None. CLINICAL INDICATION: Female, 58 years old with history of pain/trauma; Pain.trauma, fall (accession [id number]), Pain, trauma, fall (accession [id number]) TECHNIQUE: Brain: Multiple axial CT images of the brain were obtained without IV contrast. Cspine: Axial CT images from the skull base to the inferior aspect of T2 we obtained without intraven ous contrast. Coronal and sagittal reformatted images were also reviewed. Facial: Axial imaging of the facial structures with sagittal and coronal reformats. FINDINGS: Brain: Extra-axial spaces: No abnormal extra-axial fluid collections. Ventricular system: Within normal limits Cerebral parenchyma: No acute intraparenchymal hemorrhage or mass effect. The burns-white junction is well differentiated. Cerebellum: Unremarkable. Mass effect: No evidence of midline shift. Intracranial vasculature: unremarkable Soft tissues: Normal. Calvarium/osseous structures: No depressed skull fracture. Paranasal sinuses and mastoid air cells: Mild scattered mucosal thickening and or secretions. Visualized orbits: Orbital contents are intact. Cervical spine: Fracture: None. Osseous structures: Multilevel degenerative disc disease changes with endplate spurring and disc oste ophyte complex's. Vertebral alignment: Within normal limits. Spinal canal/Neural Foramina: No evidence of significant spinal canal narrowing. No evidence for sign ificant neural foraminal stenosis. Neck soft tissues: Prevertebral soft tissues are within normal limits. Other: The airway is patent. The lung apices are clear. Facial: Left cheek edema without definitive displaced fracture. Layering fluid in left maxillary sinu s is present possibly on the basis of paranasal sinus disease. The remainder of the paranasal sinuses are clear. There is no evidence of fracture, subluxation, dislocation. The orbital contents are unre markable.The temporal-mandibular joints appear symmetric. IMPRESSION: 1. No acute intracranial process. 2. No evidence of cervical spine fracture. 3. Mild to moderate multilevel degenerative disc disease. 4. No left cheek edema without evidence for displaced facial bone fracture. There is some layering f luid in the left maxillary sinus possibly related paranasal sinus disease. Consider short-term follow -up lipping process. [facility], , 04/10/2024 9:49 AM
[2024-04-10 11:04] VITALS: BP 150/62; PULSE 76; RESP 16; TEMP 98
== END 2024-04-10 11:03 | disposition home or self-care (01) ==
LOC: EC 08:35
CPT/HCPCS: 70450; 70486; 72125; 99284

== ENCOUNTER 2024-10-01 17:12 | Emergency (ER) | payer OTHER ==
[2024-10-01 17:19] VITALS: RESP 20
--- NOTE | 2024-10-01 17:34 | ED ---
General Adult HPI - General Chief complaint: Upper Respiratory Infection Stated complaint: Sore Throat Time Seen by Provider: 10/01/24 17:22 Source: patient, RN notes reviewed Mode of arrival: ambulatory Limitations: no limitations - History of Present Illness Initial comments: Patient is a 59-year-old female present to the emergency department with con joseph for upper respiratory symptoms. Symptoms have been occurring for a week. Patient does have hoarse voice. Patient has mild sore throat. Patient has noticed her gland swelling. Patient does have nonproductive cough. Some congestion. - Related Data Home Medications Medication Instructions Recorded Confirmed Phenytoin Sodium Extended 200 mg PO HS 04/12/14 10/01/24 [Dilantin] atenoloL [Tenormin] 25 mg PO HS 04/12/14 10/01/24 Albuterol Sulfate [Proair Hfa] 2 puff INHALATION RT-Q4H PRN 07/29/15 10/01/24 LORazepam [Ativan] 1 mg PO BID 08/17/18 10/01/24 Meclizine [Antivert] 25 mg PO BID 08/17/18 10/01/24 Omeprazole 40 mg PO DAILY 08/17/18 10/01/24 Fluticasone Nasal [place] [Flonase 2 spray EA NOSTRIL BID PRN 02/03/23 10/01/24 Nasal [place]] Magnesium Oxide [Magox 400] 400 mg PO DAILY 02/03/23 10/01/24 Cholecalciferol [Vitamin D3 (125 125 mcg PO HS 10/01/24 10/01/24 Mcg = 5000 Iu)] Losartan Potassium [Cozaar] 100 mg PO DAILY 10/01/24 10/01/24 Meclizine [Antivert] 25 mg PO DAILY PRN 10/01/24 10/01/24 Nicotine 14Mg/24Hr Patch [Habitrol 1 patch TRANSDERM DAILY PRN 10/01/24 10/01/24 14Mg/24Hr Patch] Nystatin 100,000Unit/gm Cream 1 applic TOPICAL DAILY 10/01/24 10/01/24 [Mycostatin Cream] Phenytoin Sodium Extended 100 mg PO DAILY 10/01/24 10/01/24 [Dilantin] Rosuvastatin Calcium [Crestor] 5 mg PO DAILY 10/01/24 10/01/24 amLODIPine [Norvasc] 5 mg PO HS 10/01/24 10/01/24 Allergies Allergy/AdvReac Type Severity Reaction Status Date / Time ciprofloxacin [From Cipro] Allergy Rash/Hives Verified 10/01/24 17:39 ciprofloxacin HCl Allergy Rash/Hives Verified 10/01/24 17:39 [From Cipro] Penicillins Allergy Rash/Hives Verified 10/01/24 17:39 Sulfa (Sulfonamide Allergy Rash/Hives Verified 10/01/24 17:39 Antibiotics) hydromorphone HCl AdvReac Confusion Verified 10/01/24 17:39 [From Dilaudid] Review of Systems ROS Statement: Those systems with pertinent positive or pertinent negative responses have been documented in the HPI. ROS Other: All systems not noted in ROS Statement are negative. Constitutional: Denies: fever ENT: Reports: congestion Respiratory: Reports: cough Cardiovascular: Denies: chest pain Endocrine: Denies: fatigue Gastrointestinal: Denies: abdominal pain Musculoskeletal: Denies: back pain Past Medical History Past Medical History: Asthma, Hypertension, Seizure Disorder Additional Past Medical History / Comment(s): vertigo. LAST SEIZURE "SEVERAL YEARS AGO"; tendonitis in left elbow History of Any Multi-Drug Resistant Organisms: None Reported Past Surgical History: Breast Surgery, Section, Tubal Ligation Additional Past Surgical History / Comment(s): LEFT BREAST BX /NEG. CYST REMOVED RIGHT BUTTOCKS. D & C Past Anesthesia/Blood Transfusion Reactions: Motion Sickness Past Psychological History: Anxiety, Depression Smoking Status: Current every day smoker Past Alcohol Use History: None Reported Past Drug Use History: None Reported - Past Family History Mother Family Medical History: Hypertension Father History Unknown: Yes General Exam Limitations: no limitations General appearance: alert, in no apparent distress Head exam: Present: normocephalic Eye exam: Present: normal appearance ENT exam: Present: other (Mild pharyngeal erythema. Patient does have mild hoarseness of her voice consent sent with her concern for laryngitis) Neck exam: Present: lymphadenopathy (Mild with mild tenderness) Respiratory exam: Present: normal lung sounds bilaterally. Absent: respiratory distress, wheezes Cardiovascular Exam: Present: regular rate, normal rhythm GI/Abdominal exam: Present: soft. Absent: tenderness Extremities exam: Present: normal inspection. Absent: pedal edema, calf tenderness Neurological exam: Present: alert Psychiatric exam: Present: normal affect, normal mood Skin exam: Present: normal color Course Vital Signs 10/01/24 10/01/24 10/01/24 17:14 17:34 18:10 Temperature 98 F Pulse Rate 79 76 Respiratory 20 20 Rate Blood Pressure 199/92 184/96 O2 Sat by Pulse 93 L Oximetry EKG Findings - EKG Results: EKG: interpreted by JOHND (Q wave V1 through V3), sinus rhythm, normal axis, normal ST/T Medical Decision Making - Medical Decision Making Was pt. sent in by a medical professional or institution (, PA, CHEMICAL DEPENDENCY PROFESSIONAL, urgent care, hospital, or usp...) When possible be specific @ -No Did you speak to anyone other than the patient for history (EMS, parent, family, police, friend...)? What history was obtained from this source @ -No Did you review nursing and triage notes (agree or disagree)? Why? @ -I reviewed and agree with nursing and triage notes Were old charts reviewed (outside hosp., previous admission, EMS record, old EKG, old radiological studies, urgent care reports/EKG's, usp records)? Report findings @ -No old charts were reviewed Differential Diagnosis (chest pain, altered mental status, abdominal pain women, abdominal pain men, vaginal bleeding, weakness, fever, dyspnea, syncope, headache, dizziness, GI bleed, back pain, seizure, CVA, palpatations, mental health, musculoskeletal)? @ -Differential Fever: Pneumonia, viral URI, endocarditis, myocarditis, pericarditis, otitis, sinusitis, peritonsillar Abscess, retropharyngeal Abscess, epiglottitis, peritonitis, appendicitis, [place] cystitis, diverticulitis, hepatitis, colitis, UTI, PID, TOA, pyelonephritis, prostatitis, epididymitis, meningitis, encephalitis, pulmonary embolism, CVA, thyroid storm, pancreatitis, adrenal crisis, cavernous sinus thrombosis, this is not meant to be an all-inclusive list. EKG interpreted by me (3pts min.). @ -As above X-rays interpreted by me (1pt min.). @ -Chest x-ray shows no acute process CT interpreted by me (1pt min.). @ -None done U/S interpreted by me (1pt. min.). @ -None done What testing was considered but not performed or refused? (CT, X-rays, U/S, labs)? Why? @ -None What meds were considered but not given or refused? Why? @ -None Did you discuss the management of the patient with other professionals (professionals i.e. , PA, CHEMICAL DEPENDENCY PROFESSIONAL, lab, RT, psych nurse, drug abuse social worker, assistant elementary teacher, teacher, air force senior officer, rn case manager)? Give summary @ -No Was smoking cessation discussed for >3mins.? @ -No Was critical care preformed (if so, how long)? @ -No Were there social determinants of health that impacted care today? How? (Homelessness, low income, unemployed, alcoholism, drug addiction, transportation, low edu. Level, literacy, decrease access to med. care, snf, rehab)? @ -No Was there de-escalation of care discussed even if they declined (Discuss DNR or withdrawal of care, Hospice)? DNR status @ -No What co-morbidities impacted this encounter? (DM, HTN, Smoking, COPD, CAD, Cancer, CVA, ARF, Chemo, Hep., AIDS, mental health diagnosis, sleep apnea, morbid obesity)? @ -None Was patient admitted / discharged? Hospital course, mention meds given and route, prescriptions, significant lab abnormalities, going to OR and other pertinent info. @ -Patient presents with congestion, hoarseness of her voice and sore throat. Evaluation unremarkable. Patient did request Maalox. Patient updated on results and need for follow-up. Patient request work note for tomorrow. Undiagnosed new problem with uncertain prognosis? @ -No Drug Therapy requiring intensive monitoring for toxicity (Heparin, Nitro, Insulin, Cardizem)? @ -No Were any procedures done? @ -No Diagnosis/symptom? @ -Laryngitis Acute, or Chronic, or Acute on Chronic? @ -Acute Uncomplicated (without systemic symptoms) or Complicated (systemic symptoms)? @ -Default Side effects of treatment? @ -No Exacerbation, Progression, or Severe Exacerbation? @ -No Poses a threat to life or bodily function? How? (Chest pain, [place], [place], pneumonia, PE, COPD, DKA, ARF, appy, cholecystitis, CVA, Diverticulitis, Homicidal, Suicidal, threat to staff... and all critical care pts) @ -No - Lab Data Lab Results 10/01/24 10/01/24 Range/Units 17:42 17:42 Influenza Type A (PCR) Not Detected (Not Detectd) Influenza Type B (PCR) Not Detected (Not Detectd) RSV (PCR) Not Detected (Not Detectd) SARS-CoV-2 (PCR) Not Detected (Not Detectd) Group A Strep (PCR) NOT DETECTED (Not Detectd) Disposition Clinical Impression: Laryngitis Disposition: HOME SELF-CARE Condition: Stable Instructions (If sedation given, give patient instructions): Upper Respiratory Infection (ED) Additional Instructions: Please do follow-up with primary care physician in the next couple days for recheck. Return for difficulty breathing, worsening or changing symptoms, or any other concerns. Is patient prescribed a controlled substance at d/c from ED?: No Referrals: Paresh Li MD [Primary Care Provider] - 1-2 days Time of Disposition: 19:53
--- NOTE | 2024-10-01 18:08 | XR ---
EXAMINATION TYPE: XR chest 2V DATE OF EXAM: 10/01/2024 CLINICAL INDICATION: Female, 59 years old with history of cough, TECHNIQUE: Frontal and lateral views of the chest are obtained. COMPARISON: Chest x-ray March 16, 2024 FINDINGS: There is no focal air space opacity, pleural effusion, or pneumothorax seen. The cardiac silhouette size is stable and within normal limits. The osseous structures are intact. IMPRESSION: No acute pulmonary infiltrate. [facility], , 10/01/2024 6:06 PM
[2024-10-01 18:28] LABS: Influenza A Not Detected (Not Detectd); Influenza B Not Detected (Not Detectd); RSV Not Detected (Not Detectd)
[2024-10-01] MEDS: MAG HYDROX/AL HYDROX/SIMETH 30 ML CUP PO PRN (19:00)
[2024-10-01] MEDS: LIDOCAINE VISCOUS 2% 15 ML CUP PO ONE (19:00)
[2024-10-01 20:14] VITALS: BP 181/91; PULSE 65; TEMP 98.8
== END 2024-10-01 20:11 | disposition home or self-care (01) ==
LOC: EC 17:12
DX: J04.0 Acute laryngitis (principal); F17.200 Nicotine dependence, unspecified, uncomplicated; Z88.0 Allergy status to penicillin; Z88.1 Allergy status to other antibiotic agents; Z88.2 Allergy status to sulfonamides; Z88.5 Allergy status to narcotic agent
CPT/HCPCS: 71046; 87636; 87651; 93005; 99284

== ENCOUNTER 2024-10-04 16:43 | Emergency (ER) | payer OTHER ==
--- NOTE | 2024-10-04 17:38 | ED ---
ENT HPI - General Source: patient, RN notes reviewed Mode of arrival: ambulatory Limitations: no limitations <Peterson Lawton - Last Filed: 10/04/24 17:41> <Mary Louise - Last Filed: 10/11/24 02:44> <ThomasEmily Kartik - Last Filed: 10/11/24 05:01> - General Chief complaint: ENT Stated complaint: sore throat Time Seen by Provider: 10/04/24 16:57 - History of Present Illness Initial comments: Quick note: This is a 59-year-old female presenting from Dr. Li's office with mass/swelling in right neck x 3 days. Patient states she was sent by Dr. Li to have a CT performed on the "gland" in her right neck. Patient endorses sore throat had recent history of laryngitis. -Dr. Li contacted and he personally confirmed that he is requesting a CT scan of patient's neck and possible IV antibiotics. Advised provider treating patient to reach out to him following initial evaluation. (Peterson Lawton) 59-year-old female presenting with chief complaint of throat pain and swelling on the right side of the throat. Patient was sent by her PCP Dr. Li. She reports that she has had a sore throat for few days and saw in the office today, when he noted swelling on exam he advised that she come to the ER for CT scan. She was seen here recently and had negative swabs, diagnosed with laryngitis. She states that she is still able to breathe and swallow. She does note that she is taking smaller sips of water, when she takes her pills she has to take them 1 at a time as opposed to taking them all at once. No drooling or difficulty breathing. (Mary Louise) - Related Data Home Medications Medication Instructions Recorded Confirmed Phenytoin Sodium Extended 200 mg PO HS 04/12/14 10/01/24 [Dilantin] atenoloL [Tenormin] 25 mg PO HS 04/12/14 10/01/24 Albuterol Sulfate [Proair Hfa] 2 puff INHALATION RT-Q4H PRN 07/29/15 10/01/24 LORazepam [Ativan] 1 mg PO BID 08/17/18 10/01/24 Meclizine [Antivert] 25 mg PO BID 08/17/18 10/01/24 Omeprazole 40 mg PO DAILY 08/17/18 10/01/24 Fluticasone Nasal Avenal [Flonase 2 spray EA NOSTRIL BID PRN 02/03/23 10/01/24 Nasal Avenal] Magnesium Oxide [Magox 400] 400 mg PO DAILY 02/03/23 10/01/24 Cholecalciferol [Vitamin D3 (125 125 mcg PO HS 10/01/24 10/01/24 Mcg = 5000 Iu)] Losartan Potassium [Cozaar] 100 mg PO DAILY 10/01/24 10/01/24 Meclizine [Antivert] 25 mg PO DAILY PRN 10/01/24 10/01/24 Nicotine 14Mg/24Hr Patch [Habitrol 1 patch TRANSDERM DAILY PRN 10/01/24 10/01/24 14Mg/24Hr Patch] Nystatin 100,000Unit/gm Cream 1 applic TOPICAL DAILY 10/01/24 10/01/24 [Mycostatin Cream] Phenytoin Sodium Extended 100 mg PO DAILY 10/01/24 10/01/24 [Dilantin] Rosuvastatin Calcium [Crestor] 5 mg PO DAILY 10/01/24 10/01/24 amLODIPine [Norvasc] 5 mg PO HS 10/01/24 10/01/24 Previous Rx's Medication Instructions Recorded Clindamycin [Cleocin] 450 mg PO Q6H 10 Days #120 cap 10/04/24 Allergies Allergy/AdvReac Type Severity Reaction Status Date / Time ciprofloxacin [From Cipro] Allergy Rash/Hives Verified 10/04/24 17:12 ciprofloxacin HCl Allergy Rash/Hives Verified 10/04/24 17:12 [From Cipro] Penicillins Allergy Rash/Hives Verified 10/04/24 17:12 Sulfa (Sulfonamide Allergy Rash/Hives Verified 10/04/24 17:12 Antibiotics) hydromorphone HCl AdvReac Confusion Verified 10/04/24 17:12 [From Dilaudid] Review of Systems ROS Other: All systems not noted in ROS Statement are negative. <Peterson Lawton - Last Filed: 10/04/24 17:41> ROS Other: All systems not noted in ROS Statement are negative. <Mary Loiuse - Last Filed: 10/11/24 02:44> ROS Other: All systems not noted in ROS Statement are negative. <Emily Guzman Kartik - Last Filed: 10/11/24 05:01> ROS Statement: Those systems with pertinent positive or pertinent negative responses have been documented in the HPI. Past Medical History Past Medical History: Asthma, Hypertension, Seizure Disorder Additional Past Medical History / Comment(s): vertigo. LAST SEIZURE "SEVERAL YEARS AGO"; tendonitis in left elbow History of Any Multi-Drug Resistant Organisms: None Reported Past Surgical History: Breast Surgery, Section, Tubal Ligation Additional Past Surgical History / Comment(s): LEFT BREAST BX /NEG. CYST REMOVED RIGHT BUTTOCKS. D & C Past Anesthesia/Blood Transfusion Reactions: Motion Sickness Past Psychological History: Anxiety, Depression Smoking Status: Current every day smoker Past Alcohol Use History: None Reported Past Drug Use History: None Reported - Past Family History Mother Family Medical History: Hypertension Father History Unknown: Yes <Peterson Lawton - Last Filed: 10/04/24 17:41> General Exam Limitations: no limitations <Peterson Lawton - Last Filed: 10/04/24 17:41> Limitations: no limitations General appearance: alert, in no apparent distress Head exam: Present: atraumatic, normocephalic, normal inspection Eye exam: Present: normal appearance, EOMI Expanded Throat exam: L peritonsillar mass Neck exam: Present: normal inspection. Absent: meningismus Respiratory exam: Present: normal lung sounds bilaterally. Absent: respiratory distress, wheezes, rales, rhonchi, stridor Cardiovascular Exam: Present: regular rate, normal rhythm, normal heart sounds. Absent: systolic murmur, diastolic murmur, rubs, gallop, clicks Neurological exam: Present: alert, oriented X3 Psychiatric exam: Present: normal affect, normal mood Skin exam: Present: warm, dry, normal color <Mary Louise - Last Filed: 10/11/24 02:44> - General Exam Comments Initial Comments: Visual Physical Exam Vital signs reviewed General: Well-appearing, nontoxic, no acute distress. Head: Normocephalic, atraumatic Eyes: PERRLA, EOMI ENT: Airway patent Chest: Nonlabored breathing Skin: No visual rash, normal skin tone Neuro: Alert and oriented 3 Musculoskeletal: No gross abnormalities (Peterson Lawton) Course Vital Signs 10/04/24 10/04/24 17:09 21:24 Temperature 97.7 F 98.1 F Pulse Rate 76 80 Respiratory 17 19 Rate Blood Pressure 144/84 148/90 O2 Sat by Pulse 97 97 Oximetry Medical Decision Making <Peterson Lawton - Last Filed: 10/04/24 17:41> - Lab Data Result diagrams: 10/04/24 17:58 10/04/24 17:58 <Mary Louise - Last Filed: 10/11/24 02:44> - Lab Data Result diagrams: 10/04/24 17:58 10/04/24 17:58 <Emily Guzman - Last Filed: 10/11/24 05:01> - Medical Decision Making I completed the quick note portion of this chart signed GREGORIA Weiss (Peterson Lawton) Was pt. sent in by a medical professional or institution ([facility], STUD DRIVER, urgent care, hospital, or intermediate...) When possible be specific @ -PCP Did you speak to anyone other than the patient for history (EMS, parent, family, police, friend...)? What history was obtained from this source @ -No Did you review nursing and triage notes (agree or disagree)? Why? @ -I reviewed and agree with nursing and triage notes Were old charts reviewed (outside hosp., previous admission, EMS record, old EKG, old radiological studies, urgent care reports/EKG's, intermediate records)? Report findings @ -No old charts were reviewed Differential Diagnosis (chest pain, altered mental status, abdominal pain women, abdominal pain men, vaginal bleeding, weakness, fever, dyspnea, syncope, hea dache, dizziness, GI bleed, back pain, seizure, CVA, palpatations, mental health, musculoskeletal)? @ -Differential includes peritonsillar abscess, mass, retropharyngeal abscess, not an all-inclusive list EKG interpreted by me (3pts min.). @ -As above X-rays interpreted by me (1pt min.). @ -None done CT interpreted by me (1pt min.). @ -CT shows right peritonsillar abscess measuring 13 x 7 mm. U/S interpreted by me (1pt. min.). @ -None done What testing was considered but not performed or refused? (CT, X-rays, U/S, labs)? Why? @ -None What meds were considered but not given or refused? Why? @ -None Did you discuss the management of the patient with other professionals (professionals i.e. , PA, STUD DRIVER, lab, RT, psych nurse, healthcare social worker, independent driver, teacher, engineering officer, director of casework department)? Give summary @ -No Was smoking cessation discussed for >3mins.? @ -No Was critical care preformed (if so, how long)? @ -No Were there social determinants of health that impacted care today? How? (Homelessness, low income, unemployed, alcoholism, drug addiction, transportation, low edu. Level, literacy, decrease access to med. care, half-way, rehab)? @ -No Was there de-escalation of care discussed even if they declined (Discuss DNR or withdrawal of care, Hospice)? DNR status @ -No What co-morbidities impacted this encounter? (DM, HTN, Smoking, COPD, CAD, Cancer, CVA, ARF, Chemo, Hep., AIDS, mental health diagnosis, sleep apnea, morbid obesity)? @ -None Was patient admitted / discharged? Hospital course, mention meds given and route, prescriptions, significant lab abnormalities, going to OR and other pertinent info. @ -59-year-old female presenting with chief complaint of throat pain and right- sided throat swelling. History and physical examination are conducted. Patient does have right-sided peritonsillar mass. She is having no stridor or tripoding or drooling. She is able to breathe and swallow without difficulty. CT is positive for peritonsillar abscess, however it is very small and would be difficult to drain here in the ER. She is treated with Decadron, Toradol, IV fluids, ceftriaxone, and IV clindamycin. She will be discharged on clindamycin and is instructed to follow-up with ENT. Follow-up with PCP. Report back to ER with any new or worsening symptoms. Discussed return parameters and answered all questions. Patient conveyed verbal understanding and agreed to the plan. I discussed this case in detail with my attending Dr. Guzman Undiagnosed new problem with uncertain prognosis? @ -No Drug Therapy requiring intensive monitoring for toxicity (Heparin, Nitro, Insulin, Cardizem)? @ -No Were any procedures done? @ -No Diagnosis/symptom? @ -peritonsillar abscess Acute, or Chronic, or Acute on Chronic? @ -Acute Uncomplicated (without systemic symptoms) or Complicated (systemic symptoms)? @ -Uncomplicated Side effects of treatment? @ -No Exacerbation, Progression, or Severe Exacerbation? @ -No Poses a threat to life or bodily function? How? (Chest pain, [place], [place], pneumonia, PE, COPD, DKA, ARF, appy, cholecystitis, CVA, Diverticulitis, Homicidal, Suicidal, threat to staff... and all critical care pts) @ -Potential with any infection, however unlikely at this time (Mary Louise) I spoke with the patient myself patient adamantly is refusing any type of attempted drainage. Did recommend antibiotics in the absence of needle aspiration and follow-up with ENT. Patient was agreeable to this treatment plan (Emily Guzman) - Lab Data Lab Results 10/04/24 10/04/24 10/04/24 Range/Units 17:58 17:58 18:15 WBC 11.28 H (4.50-10.00) 10*3/uL RBC 4.78 (4.10-5.20) 10*6/uL Hgb 15.0 (12.0-15.0) g/dL Hct 44.4 (37.2-46.3) % MCV 92.9 (80.0-97.0) fL MCH 31.4 (27.0-32.0) pg MCHC 33.8 (32.0-37.0) g/dL Plt Count 200 (140-440) 10*3/uL MPV 11.3 (9.5-12.2) fL Immature Gran % (Auto) 0.4 % Neutrophils % 69.9 % Lymphocytes % 17.9 % Monocytes % 8.6 % Eosinophils % 1.9 % Basophils % 1.3 % Immature Gran # 0.04 (0.00-0.04) 10*3/uL Neutrophils # 7.89 H (1.80-7.70) 10*3/uL Lymphocytes # 2.02 (0.90-5.00) 10*3/uL Monocytes # 0.97 (0.20-1.00) 10*3/uL Eosinophils # 0.21 (0.04-0.35) 10*3/uL Basophils # 0.15 H (0.00-0.10) 10*3/uL Sodium 136 L (137-145) mmol/L Potassium 4.1 (3.5-5.1) mmol/L Chloride 100 (98-107) mmol/L Carbon Dioxide 28 (22-30) mmol/L Anion Gap 8 mmol/L BUN 12 (7-17) mg/dL Creatinine 0.51 L (0.52-1.04) mg/dL Est GFR (CKD-EPI)AfAm >90 (>60 ml/min/1.73 sqM) Est GFR (CKD-EPI)NonAf >90 (>60 ml/min/1.73 sqM) Glucose 114 H (74-99) mg/dL Calcium 9.3 (8.4-10.2) mg/dL Total Bilirubin 0.8 (0.2-1.3) mg/dL AST 25 (14-36) U/L ALT 23 (4-34) U/L Alkaline Phosphatase 90 (38-126) U/L Total Protein 7.0 (6.3-8.2) g/dL Albumin 4.0 (3.5-5.0) g/dL Group A Strep (PCR) NOT DETECTED (Not Detectd) Disposition <Peterson Lawton - Last Filed: 10/04/24 17:41> Is patient prescribed a controlled substance at d/c from ED?: No <Mary Louise - Last Filed: 10/11/24 02:44> <Emily Guzman - Last Filed: 10/11/24 05:01> Clinical Impression: Peritonsillar abscess Disposition: HOME SELF-CARE Condition: Fair Instructions (If sedation given, give patient instructions): Peritonsillar Abscess (ED) Additional Instructions: Follow-up with PCP and ENT. Report back to ER with any new or worsening symptoms. Take your medication as prescribed. Prescriptions: Clindamycin [Cleocin] 450 mg PO Q6H 10 Days #120 cap Referrals: Paresh Li MD [Primary Care Provider] - 1-2 days Andrews Aponte DO [Doctor of Osteopathic Medicine] - 1-2 days Grover Archer MD [STAFF PHYSICIAN] - 1-2 days
[2024-10-04 18:07] LABS: Basophils # (A) 0.15 10*3/uL (0.00-0.10); Basophils % (A) 1.3 %; Eosinophils # (A) 0.21 10*3/uL (0.04-0.35); Eosinophils % (A) 1.9 %; HCT 44.4 % (37.2-46.3); Lymphocytes # (A) 2.02 10*3/uL (0.90-5.00); Lymphocytes % (A) 17.9 %; MCH 31.4 pg (27.0-32.0); MCHC 33.8 g/dL (32.0-37.0); MCV 92.9 fL (80.0-97.0); Mean Platelet Volume 11.3 fL (9.5-12.2); Monocytes # (A) 0.97 10*3/uL (0.20-1.00); Monocytes % (A) 8.6 %; Neutrophils # (A) 7.89 10*3/uL (1.80-7.70); Neutrophils % (A) 69.9 %; Platelet Count 200 10*3/uL (140-440); RBC 4.78 10*6/uL (4.10-5.20); RDW 12.9 % (11.5-14.5); WBC 11.28 10*3/uL (4.50-10.00)
[2024-10-04 18:21] LABS: ALT 23 U/L (4-34); AST 25 U/L (14-36); African American GFR (CKD) >90 (>60 ml/min/1.73 sqM); Alkaline Phosphatase 90 U/L (38-126); Anion Gap 8 mmol/L; Blood Urea Nitrogen 12 mg/dL (7-17); Calcium 9.3 mg/dL (8.4-10.2); Carbon Dioxide 28 mmol/L (22-30); Chloride 100 mmol/L (98-107); Glucose 114 mg/dL (74-99); Non-African American GFR(CKD) >90 (>60 ml/min/1.73 sqM); Potassium 4.1 mmol/L (3.5-5.1); Sodium 136 mmol/L (137-145); Total Bilirubin 0.8 mg/dL (0.2-1.3)
--- NOTE | 2024-10-04 18:21 | CT ---
EXAMINATION TYPE: CT soft tissue neck w con DATE OF EXAM: 10/04/2024 6:08 PM COMPARISON: . 04/10/2024 CLINICAL INDICATION: Female, 59 years old with history of R sided tonsillar swelling; [facility], sent by P for sore throat, possible abscess TECHNIQUE: Standard enhanced CT of the neck. Axial sections with coronal and sagittal reformats were obtained. Contrast used:100 mL of Isovue 300 with IV Contrast, (None if empty) Oral contrast used: (None if empty) CT DLP: 187.7 mGycm, Automated exposure control for dose reduction was used. FINDINGS: Brain: Visualized portions are grossly unremarkable. Orbits: Unremarkable Sinuses: Grossly unremarkable. Spaces of the neck: Right peritonsillar organizing fluid collection measuring 13 x 7 mm. Musculoskeletal: No acute osseous pathology. Lymph nodes: Multiple nonenlarged lymph nodes are seen along both anterior chains of the neck. Vascular structures: Visualized major arteries are patent without evidence of aneurysm. Thoracic Inlet/airway: Airway is patent. Mild centrilobular and paraseptal emphysema changes. Soft tissues/Thyroid: Thyroid and remainder of the soft tissues are unremarkable. Other: none. IMPRESSION: 1. Right peritonsillar abscess with likely associated reactive. Short-term follow-up and considerat ion for direct visualization recommended to exclude underlying malignancy. 2. Mild emphysema. [facility], , 10/04/2024 6:19 PM
[2024-10-04] MEDS: DEXAMETHASONE SOD PHOSPHATE 10 MG/ML 1 ML VIAL IV STA (18:57)
[2024-10-04] MEDS: KETOROLAC 15 MG/ML 1 ML VIAL IVP STA (18:58)
[2024-10-04] MEDS: DEXTROSE 5%-0.9% NACL 1,000 ML IV SCH (19:04)
[2024-10-04] MEDS: CLINDAMYCIN 600 MG in DEXTROSE 5% IN WATER 50 ML IVPB STA (20:00)
[2024-10-04 21:26] VITALS: BP 148/90; PULSE 80; RESP 19; TEMP 98.1
== END 2024-10-04 21:26 | disposition home or self-care (01) ==
LOC: EC 16:43
DX: J36 Peritonsillar abscess (principal); F17.200 Nicotine dependence, unspecified, uncomplicated; Z88.1 Allergy status to other antibiotic agents; Z88.0 Allergy status to penicillin; Z88.2 Allergy status to sulfonamides; Z88.5 Allergy status to narcotic agent
CPT/HCPCS: 36415; 87651; 80053; 85025; 70491; 99284; 96365; 96367; 96375 ×2; J1100; J0696; J1885; Q9967; J0736